=== PATIENT | female | born 1950 | race Caucasian/White ===

== ENCOUNTER → 2017-01-04 | Outpatient (CLI) | payer MEDICAID ==
[2016-05-12 10:47] VITALS: BP 133/61
[~2017-01-04] MED LIST: NS 100 ML IV 100 ML IV ONE
[2017-01-04 10:05] LABS: CREATININE 0.64 mg/dL (0.55-1.02)
--- NOTE | 2017-01-04 16:24 | CT ---
HISTORY: Generalized abdominal pain and abnormal weight loss Study: CT abdomen and pelvis with IV and oral contrast Comparison: None Technique: Multiple axial images of the abdomen and pelvis were obtained from the lung bases to the pubic symph ysis with the administration of IV contrast. Sagittal and coronal reformations were provided. Findings: The visualized portions of the lung bases are unremarkable. There is low-attenuation thickening of t he wall of the antrum of the stomach. The liver, spleen, pancreas, kidneys, and adrenal glands are unremarkable in their CT appearance. The gallbladder and appendix and uterus are surgically absent. There is no biliary dilatation.. No significant mesenteric lymphadenopathy or stranding can be obse rved. No free fluid or free air is seen within the abdomen. No bowel wall thickening or bowel dila tation is present. The colon is unremarkable. Specifically, there is no diverticulosis noted withi n the sigmoid colon. The urinary bladder is grossly unremarkable. The bony structures are grossly i ntact. IMPRESSION: 1. Probable distal gastritis Reported By:
== END ==
LOC: RAD 09:18
PROVIDERS: ATTEND Nurse Practitioner Family
DX: R10.84 Generalized abdominal pain (principal); R11.2 Nausea with vomiting, unspecified; R63.4 Abnormal weight loss; R42 Dizziness and giddiness
CPT/HCPCS: 36415; 74177; 82565; 84520; A4222

== ENCOUNTER → 2017-01-19 | Outpatient (CLI) | payer MEDICAID ==
[2016-05-12 10:47] VITALS: BP 133/61
--- NOTE | 2017-01-20 09:42 | MG ---
HISTORY: SCREENING Comparison: December 12, 2014 and December 25, 2015 FINDINGS: Bilateral CC and MLO projections of the right and left breast were obtained. Scattered fibroglandul ar tissue is seen to be present without significant interval change. No suspicious architectural di stortion, mass or clustered microcalcifications can be observed to suggest malignancy. No skin thic kening or nipple retraction is appreciated. No pathological lymphadenopathy can be identified. Forrest ign-appearing calcifications are noted within the right and left breast. IMPRESSION: NO RADIOGRAPHIC EVIDENCE OF MALIGNANCY. ACR CATEGORY 2 - benign findings. FOLLOW-UP EXAM 1 YEAR. Diagnostic CAD was utilized and reviewed. * 0 (ZERO) - ASSESSMENT INCOMPLETE; ADDITIONAL IMAGING IS NEEDED. * 1/1 (ONE) - NEGATIVE. * 2/II (TWO) - BENIGN FINDINGS. * 3/III (THREE) - PROBABLY BENIGN FINDING; SHORT INTERVAL FOLLOW-UP SUGGESTED. * 4/IV (FOUR) - SUSPICIOUS ABNORMALITY; BIOPSY SHOULD BE CONSIDERED. * 5/V (FIVE) - HIGHLY SUSPICIOUS OF MALIGNANCY; BIOPSY SHOULD BE PERFORMED. A NEGATIVE X-RAY REPORT SHOULD NOT DELAY BIOPSY IF A DOMINANT OR CLINICALLY SUSPICIOUS MASS IS PRESENT; 4 TO 8 PERCENT OF CANCERS ARE NOT IDENTIFIED BY X-RAY. A NEG ATIVE REPORT MAY REINFORCE THE CLINICAL IMPRESSION. ADENOSIS AND DENSE BREASTS MAY OBSCURE AN UNDER LYING NEOPLASM. Reported By:
== END ==
LOC: RAD 13:49
PROVIDERS: ATTEND Specialist
DX: Z12.31 Encounter for screening mammogram for malignant neoplasm of breast (principal)
CPT/HCPCS: 77067

== ENCOUNTER 2017-01-28 04:02 | Inpatient (IN) | payer MEDICAID ==
[2017-01-28] MEDS ORDERED: TORADOL 30 MG VIAL IVP ONE (04:30)
[2017-01-28] MEDS ORDERED: PROTONIX INJ 40 MG VIAL IVP ONE (04:31)
--- NOTE | 2017-01-28 04:34 | DR.GENAD ---
HPI - PCP Primary Care Physician: RENETTA MENDENHALL - HPI Comment HPI Comment: TONIGHT TEMP NOT IMPROVING WITH TYLENOL AND MOTRIN. COUGH PRODUCTIVE THICK SPUTUM THAT IS DARK YELLOW. SHE HAS CHEST PAIN AND NASAL CONGESTION. NOT ON MEDICATION FOR CURRENT ILLNESS. - Complaint/Symptoms Chief Complaint Doctors Comments: PERSISTENT FEVER AND COUGH TIMES ONE DAY. Chief Complaint:: FEVER, COUGH ONSET YESTERDAY Self Treatment fo Chief Complaint: TYLENOL 1 GRAM 0200, MOTRIN 2100 HRS, - Nurses notes reviewed Nurses Notes Review: Yes - Source History Provided: Patient - Mode of Arrival Mode of Arrival: EMS - Timing Onset of Chief Complaint: 01/27/17 Came on: Suddenly - Duration Duration: Constant Duration: Days - Severity Severity: Moderate PMH - PMH Past Medical History: Yes Past Medical History: Arthritis, Asthma, COPD, Dyslipidemia, GERD, Hypertension Past Surgical History: Yes Surgical History: Cholecystectomy, Hysterectomy, Ortho Surgery - Family History History of Family Medical Conditions: No - Social History Does patient currently use any type of tobacco product: Yes Have you used tobacco products in the last 12 months: Yes Type of Tobacco Use: Cigarettes Does any household member use tobacco: No Alcohol Use: None Do you use any recreational Drugs:: No Lives With: Family Lives Where: Home - infectious screening In the last 2 months have you had wt loss of >10#?: NO Have you had fever, night sweats or hemotysis?: No Have you traveled outside the country in the last 6 months?: No Isolation: Standard ROS - Review of Systems Constitutional: Fever, Weakness, Fatigue, Loss of Appetite. negative: Chills Eyes: No Symptoms Reported ENTM: Nose Congestion. negative: Ear Pain, Nose Discharge, Throat Pain Respiratoy: Productive Cough, Short of Breath, Wheezing. negative: Non- Productive Cough, Hemoptysis Cardiovascular: Chest Pain. negative: Edema, Palpitations Gastrointestinal/Abdominal: No Symptoms Reported. negative: Abdominal Pain, Diarrhea, Nausea, Vomiting Genitourinary: No Symptoms Reported. negative: Dysuria, Hematuria Neurological: Headache, Weakness Musculoskeletal: Back Pain, Muscle Pain, Back Integumentary: Dryness Hematologic/Lymphatic: Easy Bruising Endocrine: No Symptoms Reported All Other Systems: Reviewed and Negative PE - Vital Signs Vitals: Temperature 100.1 F Pulse Rate 112 Respiratory Rate 18 Blood Pressure 143/59 O2 Sat by Pulse Oximetry 93 - General Limitations: No Limitations General Appearance: Alert - Head Head Exam: Normal Inspection - Eyes Eye exam: Normal Appearance - ENT ENT Exam: Normal External Ear Exam External Ear Exam: Normal External Inspection TM/Canal Exam: Bilateral Normal Nose Exam: Normal Nose Exam Mouth Exam: Normal Inspection Throat Exam: Normal Inspection - Neck Neck Exam: Trachea Midline - Chest Chest Inspection: Symmetric Chest Wall Rise - Respiratory Respiratory Exam: Respiratory Distress Respiratory Exam: Bilateral Wheezing, Bilateral Rhonchi, Lower Wheezing, Lower Rhonchi - Cardiovascular Cardiovascular Exam: Regular Rate, Normal Rhythm, Normal Heart Sounds - Abdominal Exam Abdominal Exam: Normal Bowel Sounds, Soft. negative: Tenderness - Extremities Extremities Exam: Normal Inspection - Back Back Exam: Paraspinal Tenderness - Neurologic Neurological Exam: Alert, Oriented X3 - Psychiatric Psychiatric Exam: Normal Affect, Normal Mood - Skin Skin Exam: Erythema MDM - Differential Diagnosis Differential Diagnosis: PNEUMONIA, BRONCHITIS, COPD, CHF, Course - Treatment Treatment: SEE ORDERS. - Consultation Consultation Comments: DISCUSS PATIENT WITH DR. MOSQUEDA. HE WILL ADMIT PATIENT. - Education/Counseling Education/Counseling: Patient, Education Educated On: Treatment, Diagnosis ROR - Labs Reviewed Laboratory Results Reviewed?: Yes Result Diagrams: 01/28/17 04:50 01/28/17 04:50 Laboratory: 01/28/17 04:48 Sputum - Expectorated Sputum - Final WBC 14.4 X10^3/uL (3.6-10.0) H 01/28/17 04:50 RBC 4.64 X10^6/uL (3.5-5.4) 01/28/17 04:50 Hgb 12.3 g/dL (12.0-16.0) 01/28/17 04:50 Hct 38.3 % (36.0-47.0) 01/28/17 04:50 MCV 82.5 fL (80.0-100.0) 01/28/17 04:50 MCH 26.4 pg (27.0-34.0) L 01/28/17 04:50 MCHC 32.1 g/dL (33.0-35.0) L 01/28/17 04:50 RDW 15.0 % (11.6-16.5) 01/28/17 04:50 Plt Count 170 X10^3/uL (150.0-450.0) 01/28/17 04:50 MPV 11.4 fL (7.4-11.0) H 01/28/17 04:50 Neut % 85.2 % (42.0-75.0) H 01/28/17 04:50 Lymph % 6.3 % (21.0-51.0) L 01/28/17 04:50 [place] % 7.0 % (0.0-13.0) 01/28/17 04:50 Eos % 0.9 % (0.9-2.9) 01/28/17 04:50 Baso % 0.6 % (0.2-1.0) 01/28/17 04:50 Neut # 12.3 x10^3/uL (2.2-4.8) H 01/28/17 04:50 Lymph # 0.9 X10^3/uL (1.3-2.9) L 01/28/17 04:50 [place] # 1.0 x10^3/uL (0.3-0.8) H 01/28/17 04:50 Eos # 0.1 x10^3/uL (0.0-0.2) 01/28/17 04:50 Baso # 0.1 X10^3/uL (0.0-0.1) 01/28/17 04:50 Absolute Nucleated RBC 0.0 /100WBC 01/28/17 04:50 Sodium 146 mmol/L (136-145) H 01/28/17 04:50 Corrected Sodium TNP 01/28/17 04:50 Potassium 3.4 mmol/L (3.5-5.1) L 01/28/17 04:50 Chloride 109 mmol/L (98-107) H 01/28/17 04:50 Carbon Dioxide 24.2 mmol/L (21-32) 01/28/17 04:50 BUN 9 mg/dL (7-18) 01/28/17 04:50 Creatinine 0.72 mg/dL (0.55-1.02) 01/28/17 04:50 Est GFR (MDRD) Af Amer > 60 (>60) 01/28/17 04:50 Est GFR (MDRD) Non-Af > 60 (>60) 01/28/17 04:50 Glucose 105 mg/dL (65-99) H 01/28/17 04:50 Lactic Acid 1.2 mmol/L (0.4-2.0) 01/28/17 04:50 Calcium 9.2 mg/dL (8.5-10.1) 01/28/17 04:50 Corrected Calcium TNP 01/28/17 04:50 Total Bilirubin 0.40 mg/dL (0.2-1.0) 01/28/17 04:50 AST 15 Units/L (15-37) 01/28/17 04:50 ALT 18 Units/L (12-78) 01/28/17 04:50 Alkaline Phosphatase 47 Units/L (46-116) 01/28/17 04:50 Total Protein 6.9 g/dL (6.4-8.2) 01/28/17 04:50 Albumin 3.4 g/dL (3.4-5.0) 01/28/17 04:50 Globulin 3.5 g/dL (2.5-4.5) 01/28/17 04:50 Albumin/Globulin Ratio 1.0 Ratio (1.1-2.1) L 01/28/17 04:50 Specimen Type Clean catch urine 01/28/17 05:09 Urine Color Yellow (YELLOW) 01/28/17 05:09 Urine Appearance Slightly hazy (CLEAR) 01/28/17 05:09 Urine pH 5.0 (5.0 - 8.0) 01/28/17 05:09 Ur Specific [place] 1.015 (1.000-1.030) 01/28/17 05:09 Urine Protein 1+ (NEGATIVE) 01/28/17 05:09 Urine Glucose (UA) Negative (NEGATIVE) 01/28/17 05:09 Urine Ketones Negative (NEGATIVE) 01/28/17 05:09 Urine Occult Blood 1+ (NEGATIVE) 01/28/17 05:09 Urine Nitrite Negative (NEGATIVE) 01/28/17 05:09 Urine Bilirubin Negative (NEGATIVE) 01/28/17 05:09 Urine Urobilinogen Normal (NORMAL) 01/28/17 05:09 Ur Leukocyte Esterase 1+ (NEGATIVE) 01/28/17 05:09 Urine RBC 0-3 /HPF (NEGATIVE) 01/28/17 05:09 Urine WBC 0-3 /HPF (NEGATIVE) 01/28/17 05:09 Ur Squamous Epith Cells Many /HPF (NEGATIVE) 01/28/17 05:09 Urine Bacteria Trace /HPF (NEGATIVE) 01/28/17 05:09 Ur Culture Indicated? No/not indicated 01/28/17 05:09 Influenza A (H1N1) PCR Not detected (NOT DETECT) 01/28/17 04:51 Influenza Type A (PCR) Negative (NEGATIVE) 01/28/17 04:51 Influenza Type B (PCR) Negative (NEGATIVE) 01/28/17 04:51 - XRAY XRAY Interpreted by: Radiologist XRAY Findings: REPORT NOTED AND DICUSS WITH PATIENT. - EKG Rhythm: NSR (EKG NOTED) - Diagnosis Discharge Problem: COPD exacerbation Acute bronchitis Qualifiers: Bronchitis organism: other organism Qualified Code(s): J20.8 - Acute bronchitis due to other specified organisms Fever Qualifiers: Fever type: unspecified Qualified Code(s): R50.9 - Fever, unspecified - Discharge Plan Disposition: ADMITTED INPATIENT Condition: Stable - Follow ups/Referrals Follow ups/Referrals: NFD,None [Primary Care Provider] - 3 days - Instructions
[2017-01-28] MEDS ORDERED: TORADOL 30 MG VIAL ONE (04:44)
[2017-01-28] MEDS ORDERED: PROTONIX INJ 40 MG VIAL ONE (04:44)
[2017-01-28 05:05] LABS: BASOPHILS # (AUTO) 0.1 X10^3/uL (0.0-0.1); BASOPHILS % (AUTO) 0.6 % (0.2-1.0); EOSINOPHILS # (AUTO) 0.1 x10^3/uL (0.0-0.2); EOSINOPHILS % (AUTO) 0.9 % (0.9-2.9); HEMATOCRIT 38.3 % (36.0-47.0); HEMOGLOBIN 12.3 g/dL (12.0-16.0); LYMPHOCYTES # (AUTO) 0.9 X10^3/uL (1.3-2.9); LYMPHOCYTES % (AUTO) 6.3 % (21.0-51.0); MEAN CORPUSCULAR HEMOGLOBIN 26.4 pg (27.0-34.0); MEAN CORPUSCULAR HGB CONC 32.1 g/dL (33.0-35.0); MEAN CORPUSCULAR VOLUME 82.5 fL (80.0-100.0); MEAN PLATELET VOLUME 11.4 fL (7.4-11.0); NEUTROPHILS # (AUTO) 12.3 x10^3/uL (2.2-4.8); NEUTROPHILS % (AUTO) 85.2 % (42.0-75.0); PLATELET COUNT 170 X10^3/uL (150.0-450.0); RED BLOOD COUNT 4.64 X10^6/uL (3.5-5.4); WHITE BLOOD COUNT 14.4 X10^3/uL (3.6-10.0)
[2017-01-28 05:13] LABS: ALANINE AMINOTRANSFERASE 18 Units/L (12-78); ALBUMIN 3.4 g/dL (3.4-5.0); ALKALINE PHOSPHATASE 47 Units/L (46-116); ASPARTATE AMINO TRANSFERASE 15 Units/L (15-37); BLOOD UREA NITROGEN 9 mg/dL (7-18); CALCIUM 9.2 mg/dL (8.5-10.1); CARBON DIOXIDE 24.2 mmol/L (21-32); CHLORIDE 109 mmol/L (98-107); CREATININE 0.72 mg/dL (0.55-1.02); GLUCOSE 105 mg/dL (65-99); SODIUM 146 mmol/L (136-145); TOTAL PROTEIN 6.9 g/dL (6.4-8.2); eGFR BLACK RACES > 60 (>60); eGFR NON BLACK RACES > 60 (>60)
[2017-01-28 05:14] LABS: BILIRUBIN,URINE NEGATIVE (NEGATIVE); BLOOD/HEMOGLOBIN,URINE 1+ (NEGATIVE); GLUCOSE, URINE NEGATIVE (NEGATIVE); KETONES,URINE NEGATIVE (NEGATIVE); LEUKOCYTE ESTERASE ,URINE 1+ (NEGATIVE); NITRITES,URINE NEGATIVE (NEGATIVE); PROTEIN,URINE 1+ (NEGATIVE); UROBILINOGEN,URINE NORMAL (NORMAL)
[2017-01-28 05:30] LABS: LACTIC ACID 1.2 mmol/L (0.4-2.0)
--- NOTE | 2017-01-28 05:36 | RAD ---
Chest AP portable Indication: Fever. Sore throat and body aches. Findings: March 19, 2016 radiograph reviewed. Findings: There is cardiomegaly pulmonary opacities. No pneumothorax seen. No focal consolidation se en. Impression: Cardiomegaly and peribronchial thickening. COPD change possible with bronchitis. Borderl ine CHF appearance could appear similar. PA and lateral chest followup recommended. Reported By:
[2017-01-28 05:45] LABS: APPEARANCE,URINE SLIGHTLY HAZY (CLEAR); BACTERIA,URINE TRACE /HPF (NEGATIVE); COLOR,URINE YELLOW (YELLOW); RBC,URINE 0-3 /HPF (NEGATIVE); SQUAMOUS EPITHELIAL CELL,UR MANY /HPF (NEGATIVE)
[2017-01-28] MEDS ORDERED: LEVAQUIN PREMIX IV 750 MG 750 MG/150 ML BAG IV ONE ×2 (05:59→06:17)
[2017-01-28 08:23] LABS: CKMB % 3.5 % (<4); CREATINE KINASE 29 Units/L (26-192); CREATINE KINASE MB < 1.0 ng/mL (0-4.0); TROPONIN I < 0.02 ng/mL (0-1.5)
[2017-01-28] MEDS: DUONEB 0.5 MG/3 MG NEB SCH ×4 (09:40→20:44)
[2017-01-28] MEDS ORDERED: [UNRECOGNIZED DRUG - OTHER] PO PRN (10:22)
[2017-01-28 10:27] VITALS: BMI 21.9
[2017-01-28] MEDS ORDERED: NS 100 ML IV 100 ML IV ONE (10:27)
[2017-01-28] MEDS ORDERED: [UNRECOGNIZED DRUG - OTHER] PO SCH (10:30)
[2017-01-28] MEDS ORDERED: [UNRECOGNIZED DRUG - OTHER] PO SCH (10:30)
[2017-01-28] MEDS: TORADOL 30 MG VIAL IVP PRN (10:34)
[2017-01-28] MEDS: PEPCID 20 MG IV PREMIX* 20 MG/50 ML BAG IV SCH ×2 (10:34→20:59)
[2017-01-28] MEDS ORDERED: BENTYL CAP 10 MG PO PRN (10:43)
[2017-01-28] MEDS ORDERED: TORADOL 30 MG VIAL IVP SCH (11:00)
[2017-01-28] MEDS: ANTIVERT TAB 25 MG PO SCH ×2 (11:20→21:00)
[2017-01-28] MEDS: LOPRESSOR TAB 50 MG PO SCH (11:20)
[2017-01-28] MEDS: SINGULAIR TAB 10 MG PO SCH (11:20)
[2017-01-28] MEDS: HYDROCHLOROTHIAZIDE 25 MG TAB PO SCH (11:20)
[2017-01-28] MEDS: ASPIRIN 81 MG CHEWTAB PO SCH (11:20)
[2017-01-28] MEDS: CLARITIN PO SCH (11:20)
[2017-01-28] MEDS: ESTRADIOL TD SCH (11:21)
[2017-01-28] MEDS: VOLTAREN 1 % GEL MULTI DOSE TUBE TOP SCH ×4 (11:51→21:03)
[2017-01-28 12:02] LABS: CKMB % 5.3 % (<4); CREATINE KINASE 19 Units/L (26-192); CREATINE KINASE MB < 1.0 ng/mL (0-4.0); TROPONIN I < 0.02 ng/mL (0-1.5)
[2017-01-28] MEDS ORDERED: K-RIDER 10 MEQ/NS 100 ML 10 MEQ/100 ML BAG IV PRN (12:48)
[2017-01-28] MEDS ORDERED: POTASSIUM CHLORIDE LIQ 20 MEQ UDC PO PRN (12:48)
[2017-01-28] MEDS ORDERED: K-LYTE EFFERVESCENT PO PRN (12:48)
[2017-01-28] MEDS: K-DUR TAB 20 MEQ PO PRN (13:34)
[2017-01-28] MEDS: MAGNESIUM SULFATE 1 GM/100 mL PREMIX 1 GM/100 ML BAG IV SCH ×2 (13:35→14:58)
[2017-01-28] MEDS: NEURONTIN CAP 400 MG PO SCH ×2 (13:35→21:04)
[2017-01-28] MEDS: REQUIP PO SCH ×2 (13:35→21:05)
[2017-01-28 20:22] LABS: CREATINE KINASE 20 Units/L (26-192); CREATINE KINASE MB < 1.0 ng/mL (0-4.0); TROPONIN I < 0.02 ng/mL (0-1.5)
[2017-01-28] MEDS: TRICOR TAB 160 MG PO SCH (21:01)
[2017-01-28] MEDS: ZOCOR TAB 40 MG PO SCH (21:02)
[2017-01-29] MEDS: DUONEB 0.5 MG/3 MG NEB SCH ×6 (00:30→20:10)
[2017-01-29] MEDS: TORADOL 30 MG VIAL IVP PRN (04:25)
[2017-01-29] MEDS: SOMA TAB 350 MG PO PRN ×2 (04:29→17:59)
[2017-01-29] MEDS: [UNRECOGNIZED DRUG - OTHER] PO SCH ×2 (06:49→21:25)
[2017-01-29 06:52] LABS: BASOPHILS # (AUTO) 0.1 X10^3/uL (0.0-0.1); BASOPHILS % (AUTO) 0.5 % (0.2-1.0); EOSINOPHILS # (AUTO) 0.1 x10^3/uL (0.0-0.2); EOSINOPHILS % (AUTO) 0.8 % (0.9-2.9); HEMOGLOBIN 9.9 g/dL (12.0-16.0); LYMPHOCYTES # (AUTO) 1.4 X10^3/uL (1.3-2.9); LYMPHOCYTES % (AUTO) 11.7 % (21.0-51.0); MEAN CORPUSCULAR HEMOGLOBIN 26.7 pg (27.0-34.0); MEAN CORPUSCULAR HGB CONC 32.1 g/dL (33.0-35.0); MEAN CORPUSCULAR VOLUME 83.1 fL (80.0-100.0); MEAN PLATELET VOLUME 11.6 fL (7.4-11.0); MONOCYTES # (AUTO) 0.9 x10^3/uL (0.3-0.8); NEUTROPHILS # (AUTO) 9.8 x10^3/uL (2.2-4.8); PLATELET COUNT 150 X10^3/uL (150.0-450.0); RED BLOOD COUNT 3.73 X10^6/uL (3.5-5.4); RED CELL DISTRIBUTION WIDTH 14.7 % (11.6-16.5); WHITE BLOOD COUNT 12.3 X10^3/uL (3.6-10.0)
[2017-01-29 06:53] LABS: ALANINE AMINOTRANSFERASE 16 Units/L (12-78); ALBUMIN 2.8 g/dL (3.4-5.0); ALKALINE PHOSPHATASE 57 Units/L (46-116); ASPARTATE AMINO TRANSFERASE 17 Units/L (15-37); BLOOD UREA NITROGEN 12 mg/dL (7-18); CARBON DIOXIDE 24.1 mmol/L (21-32); CHLORIDE 113 mmol/L (98-107); CREATININE 0.74 mg/dL (0.55-1.02); GLUCOSE 86 mg/dL (65-99); MAGNESIUM 1.8 mg/dL (1.7-2.9); SODIUM 149 mmol/L (136-145); TOTAL PROTEIN 6.2 g/dL (6.4-8.2); eGFR BLACK RACES > 60 (>60); eGFR NON BLACK RACES > 60 (>60)
[2017-01-29] MEDS: REQUIP PO SCH ×4 (07:12→21:11)
[2017-01-29] MEDS: NEURONTIN CAP 400 MG PO SCH ×4 (07:12→21:29)
[2017-01-29] MEDS: PEPCID 20 MG IV PREMIX* 20 MG/50 ML BAG IV SCH ×2 (09:26→21:11)
[2017-01-29] MEDS: PROTONIX INJ 40 MG VIAL IVP SCH (09:26)
[2017-01-29] MEDS: HYDROCHLOROTHIAZIDE 25 MG TAB PO SCH (09:26)
[2017-01-29] MEDS: K-DUR TAB 20 MEQ PO PRN (09:27)
[2017-01-29] MEDS: LOPRESSOR TAB 50 MG PO SCH (09:27)
[2017-01-29] MEDS: SINGULAIR TAB 10 MG PO SCH (09:27)
[2017-01-29] MEDS: CLARITIN PO SCH (09:27)
[2017-01-29] MEDS: ANTIVERT TAB 25 MG PO SCH ×2 (09:27→21:13)
[2017-01-29] MEDS: ASPIRIN 81 MG CHEWTAB PO SCH (09:27)
[2017-01-29] MEDS: VOLTAREN 1 % GEL MULTI DOSE TUBE TOP SCH ×4 (09:28→21:18)
[2017-01-29] MEDS: ESTRADIOL TD SCH (09:30)
[2017-01-29] MEDS: TYLENOL #3 TAB (W/CODEINE) PO PRN (15:42)
[2017-01-29] MEDS: XANAX PO PRN (15:43)
--- NOTE | 2017-01-29 16:27 | DR.H&P ---
H&P - History & Physical for Day of: H&P Date: 01/28/17 - Chief Complaint Chief Complaint: COUGH, CONGESTION, FEVER, SHORTNESS OF BREATH - Allergies Allergies/Adverse Reactions: Allergies Allergy/AdvReac Type Severity Reaction Status Date / Time Penicillins Allergy Verified 01/28/17 09:43 Vancomycin Allergy Verified 01/28/17 09:43 - History of Present Illness History of Present Illness: THIS IS A 66 YEAR OLD FEMALE, WHO IS A PATIENT OF [facility]. SHE PRESENTS TO THE EMERGENCY ROOM WITH COMPLAINTS OF SHORTNESS OF BREATH, COUGH, CONGESTION, AND FEVER. PATIENT REPROTS SYMPTOMS HAVE BEEN ON- GOING SINCE ONE DAY PRIOR TO ARRIVAL AND HAVE WORSENED IN SEVERITY. SHE REPORTS COUGH IS PRODUCTIVE AND HAS CHEST PAIN AND NASAL CONGESTION. ON AUSCULATION, LUNGS ARE NOTED WITH WHEEZING THROUGHOUT. SHE REPORTS TAKING MOTRIN AND TYLENOL AT HOME WITH NO IMPROVEMENT. SHE REPORTS FEVER OF 104.0F AT HOME. LABS AND CHEST XRAY OBTAINED IN ER. CBC WNL EXCEPT: WBC 14.4. CMP WNL EXCEPT: SODIUM 146, POTASSIUM 3.4, CHL 109. MAGNESIUM 1.3. CARDIAC ENZYMES WNL. INFLUENZA NEGATIVE. CHEST XRAY CARDIOMEGALY AND PERIBRONCHIAL THICKENING ; COPD CHANGE. WE WILL ADMIT PATIENT FOR FURTHER TREATMENT AND EVALUATION. 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, Emphysema , Previous Blood Transfusion - Past Surgical History Surgical History: Cholecystectomy, Hysterectomy, Ortho Surgery Additional Surgical History: Tubal Ligation, Hernia Repair - Family History Family Medical History: Cancer - Social History Does patient currently use any type of tobacco product: Yes Have you used tobacco products in the last 12 months: Yes Type of Tobacco Use: Cigarettes How many years tobacco product used: 40 Does any household member use tobacco: No Alcohol Use: None - Medications Home Medications: Acetaminophen W/ Codeine [Acetaminophen/Codeine 300-60 mg] 1 tab PO Q6H PRN 02/09 [History Confirmed 01/28/17] Albuterol Neb 2.5MG/ 3Ml [Proventil Neb Tx 0.083% 2.5MG/ 3Ml] 1 nebule INH QID 01/28/17 [History Confirmed 01/28/17] Alendronate Sodium [Fosamax] 70 mg PO Q7D 01/28/17 [History Confirmed 01/28/17] Alprazolam [Xanax] 0.5 mg PO BID PRN 01/28/17 [History Confirmed 01/28/17] Aspirin [Aspirin 81 mg Chewtab] 81 mg PO DAILY 01/28/17 [History Confirmed 01/28] Carisoprodol [Soma Tab 350 mg] 350 mg PO BID PRN 01/28/17 [History Confirmed 02/09] Clemastine Fumarate [Tavist 2.68 mg] 2.68 mg PO DAILY 01/28/17 [History Confirmed 01/28/17] Cyanocobalamin 1 ml IM WEEKLY 01/28/17 [History Confirmed 01/28/17] Diclofenac Sodium (Topical) [Voltaren 1 % Gel Multi Dose Tube] 1 applic TOP QID 01/28/17 [History Confirmed 01/28/17] Dicyclomine HCl 20 mg PO TID PRN 01/28/17 [History Confirmed 01/28/17] Ergocalciferol [Vitamin D (1.25MG)] 50,000 unit PO WEEKLY 01/28/17 [History Confirmed 01/28/17] Estradiol [Climara] 0.1 mg TD WEEKLY 01/28/17 [History Confirmed 01/28/17] Fenofibrate [Fenofibrate 160 mg] 160 mg PO HS 01/28/17 [History Confirmed ] Gabapentin 800 mg PO TID 01/28/17 [History Confirmed 01/28/17] Ipratropium Ewen Hfa [ATROVENT HFA INHALER *] 2 puff IN QID 01/28/17 [ History Confirmed 01/28/17] Ipratropium-Albuterol [Ipratropium Ewen/Albut neb] 1 nebule IN QID PRN [History Confirmed 01/28/17] Loratadine 10 mg 24-Hr Tab [LORATADINE 10 MG *] 10 mg PO DAILY 01/28/17 [ History Confirmed 01/28/17] Magnesium [Magnesium] 400 mg PO DAILY 01/28/17 [History Confirmed 01/28/17] Meclizine HCl [Meclizine 25] 12.5 mg PO BID 01/28/17 [History Confirmed 01/28/17 ] Metoprolol & Hydrochlorothiazi [Lopressor Hct 50-25 mg] 25 mg PO DAILY 01/28/17 [History Confirmed 01/28/17] Misc Home Med [Patient's Home Medication (Non-PO)] 100 mg PO TID 01/28/17 [ History Confirmed 01/28/17] Montelukast Sodium [Singulair Tab 10 mg] 10 mg PO DAILY 01/28/17 [History Confirmed 01/28/17] Potassium Chloride [Potassium Chloride ER] 20 meq PO BID 01/28/17 [History Confirmed 01/28/17] Ranitidine HCl [Ranitidine [address]] 300 mg PO BID 01/28/17 [History Confirmed 01/28/17] Ropinirole HCl [REQUIP 0.25 MG *] 0.25 mg PO TID 01/28/17 [History Confirmed 02/09] Simvastatin 80 mg PO HS 01/28/17 [History Confirmed 01/28/17] Solifenacin Succinate [Vesicare] 5 mg PO HS 01/28/17 [History Confirmed 01/28/17 ] Venlafaxine HCl [Venlafaxine HCl ER] 1 tab PO DAILY 01/28/17 [History Confirmed 01/28/17] - Review of Systems Constitutional: Fever, Chills, Weakness, Malaise Eyes: No Symptoms Reported. denies: Pain, Vision Change, Conjunctivae Inflammation, Eyelid Inflammation, Redness ENT: Nose Discharge. denies: Ear Pain, Ear Discharge, Nose Pain, Nose Congestion, Mouth Pain, Mouth Swelling, Throat Pain, Throat Swelling Respiratory: Cough, Shortness of Breath, SOB with Excertion, Sputum, Wheezing. denies: Hemoptysis, Pleuritic Pain Cardiovascular: Chest Pain. denies: Palpitations, Orthopnea, Paroxysmal Noc. Dyspnea, Edema, Light Headedness Gastrointestinal: No Symptoms Reported. denies: Nausea, Vomiting, Abdominal Pain, Diarrhea, Constipation, Melena, Hematochezia Genitourinary: No Symptoms Reported. denies: Dysuria, Frequency, Incontinence, Hematuria, Retention Musculoskeletal: No Symptoms Reported. denies: Shoulder Pain, Arm Pain, Back Pain, Hand Pain, Leg Pain, Foot Pain, Neck Pain Skin: No Symptoms Reported. denies: Rash, Lesions, Jaundice, Bruising, Wound, Ecchymosis Neurological: No Symptoms Reported. denies: Weakness, Numbness, Incoordination , Change in Speech, Confusion, Seizures - Physical Exam Vital Signs: Temperature 98.8 F Pulse Rate [Left Brachial] 82 Pulse Rate [Right Brachial] 71 Pulse Rate 70 Respiratory Rate 18 Blood Pressure [Left Arm] 113/43 Blood Pressure [Right Arm] 110/51 O2 Sat by Pulse Oximetry 96 Oriented: Normal, Time, Person, Place Eyes: Normal. negative: Blurred Vision, Diplopia, Discharge, Pain, Redness, Photophobia Ear: Normal. negative: Swelling, Ecchymosis, Hemotypanum, Abrasion, Laceration Nose: Discharge. negative: Injected, Blood Throat: Red, Dry. negative: Tonsillar Hypertrophy, Exudate Respiratory: Wheezes Throughout Cardiovascular: Normal. negative: Murmur : Normal. negative: Dysuria, Hematuria, Frequency, Discharge, Bleeding, Auscultation: Bowel Sounds: Normal. negative: Bruit Palpation: Normal. negative: Spleen Enlarged, Liver Enlarged, Mass Pulsatile Tenderness: Normal. negative: Rebound, Guarding, Rigidity Skin: Normal. negative: Diaphoresis, Wound, Bruising, Ecchymosis Musculoskeletal: Normal Psychiatric: Normal Mood Description: Calm, Appropriate Affect: Normal Speech Pattern: Clear, Appropriate - Assessment/Plan (1) COPD exacerbation Status: Acute Plan: ADMIT PATIENT, START DUONEBS, SUPPLEMENTAL OXGYEN, MONITOR LABS AND CHEST XRAY. (2) Acute bronchitis Qualifiers: Bronchitis organism: other organism Qualified Code(s): J20.8 - Acute bronchitis due to other specified organisms Status: Acute Plan: ABOVE. (3) Fever Qualifiers: Fever type: unspecified Encounter type: E Qualified Code(s): R50.9 - Fever, unspecified Status: Acute (4) COPD (chronic obstructive pulmonary disease) Qualifiers: COPD type: emphysema Chronic bronchitis type: C Emphysema type: E Status: Chronic (5) Asthma Qualifiers: Asthma severity: moderate persistent Asthma complication type: A Status: Chronic
--- NOTE | 2017-01-29 16:38 | PCM.PROG ---
Progress Note - Progress Note for Day of Date: 01/29/17 - Subjective Subjective: PATIENT CONTINUES WITH SHORTNESS OF BREATH AND ACCESSORY MUSCLE USE. SHE CONTINUES ON SUPPLEMENTAL OXYGEN WITH DUONEBS. SHE IS NOTED WITH A TEMPERATURE OF 100.1F THROUGH THE NIGHT. ON AUSCULTATION, LUNGS CONTINUE WITH WHEEZING THROUGHOUT. CBC WNL EXCEPT: WBC 12.3, H/H 9.9/31.0. CMP WNL EXCEPT: SODIUM 149, POTASSIUM 3.4, CHL 113, TOT PROTEIN 6.2, ALBUMIN 2.8. WE WILL START IV LEVAQUIN, CONTINUE DUONEBS, SUPPLEMENTAL OXYGEN, AND CONTINUE TO MONITOR. WE WILL FOLLOW UP WITH LABS AND CHEST XRAY IN AM. - Past Medical Family Social History Past Med/Fam/Surg Hx: No changes since H&P Allergies: Allergies Penicillins Allergy (Verified 01/28/17 09:43) Vancomycin Allergy (Verified 01/28/17 09:43) - Review of Systems ROS: No change since H&P - Vital Signs and I&O's Vital Signs: Temperature 98.8 F Pulse Rate [Left Brachial] 82 Pulse Rate [Right Brachial] 71 Pulse Rate 70 Respiratory Rate 18 Blood Pressure [Left Arm] 113/43 Blood Pressure [Right Arm] 110/51 O2 Sat by Pulse Oximetry 96 Intake and Output: Intake & Output 01/27/17 01/28/17 01/29/17 01/30/17 11:59 11:59 11:59 11:59 Intake Total 1457 375 Output Total 500 Balance 957 375 - Physical Exam Oriented: Normal, Time, Person, Place Eyes: Normal. negative: Blurred Vision, Diplopia, Discharge, Pain, Redness, Photophobia Ear: Normal. negative: Swelling, Ecchymosis, Hemotypanum, Abrasion, Laceration Nose: Discharge. negative: Injected, Blood Throat: Red, Dry. negative: Tonsillar Hypertrophy, Exudate Respiratory: Generalized, Wheezes Cardiovascular: Normal. negative: Murmur : Normal. negative: Dysuria, Hematuria, Frequency, Discharge, Bleeding, Auscultation: Bowel Sounds: Normal. negative: Bruit Palpation: Normal. negative: Spleen Enlarged, Liver Enlarged, Mass Pulsatile Tenderness: Normal. negative: Rebound, Guarding, Rigidity Skin: Normal. negative: Diaphoresis, Wound, Bruising, Ecchymosis Musculoskeletal: Normal Psychiatric: Normal Mood Description: Calm, Appropriate Affect: Normal Speech Pattern: Clear, Appropriate - Laboratory and Diagnostics Result Diagrams: 01/29/17 03:49 01/29/17 03:49 Labs: Laboratory WBC 12.3 X10^3/uL (3.6-10.0) H 01/29/17 03:49 RBC 3.73 X10^6/uL (3.5-5.4) 01/29/17 03:49 Hgb 9.9 g/dL (12.0-16.0) L 01/29/17 03:49 Hct 31.0 % (36.0-47.0) L 01/29/17 03:49 MCV 83.1 fL (80.0-100.0) 01/29/17 03:49 MCH 26.7 pg (27.0-34.0) L 01/29/17 03:49 MCHC 32.1 g/dL (33.0-35.0) L 01/29/17 03:49 RDW 14.7 % (11.6-16.5) 01/29/17 03:49 Plt Count 150 X10^3/uL (150.0-450.0) 01/29/17 03:49 MPV 11.6 fL (7.4-11.0) H 01/29/17 03:49 Neut % 80.0 % (42.0-75.0) H 01/29/17 03:49 Lymph % 11.7 % (21.0-51.0) L 01/29/17 03:49 [place] % 7.0 % (0.0-13.0) 01/29/17 03:49 Eos % 0.8 % (0.9-2.9) L 01/29/17 03:49 Baso % 0.5 % (0.2-1.0) 01/29/17 03:49 Neut # 9.8 x10^3/uL (2.2-4.8) H 01/29/17 03:49 Lymph # 1.4 X10^3/uL (1.3-2.9) 01/29/17 03:49 [place] # 0.9 x10^3/uL (0.3-0.8) H 01/29/17 03:49 Eos # 0.1 x10^3/uL (0.0-0.2) 01/29/17 03:49 Baso # 0.1 X10^3/uL (0.0-0.1) 01/29/17 03:49 Absolute Nucleated RBC 0.0 /100WBC 01/29/17 03:49 Sodium 149 mmol/L (136-145) H 01/29/17 03:49 Corrected Sodium TNP 01/29/17 03:49 Potassium 3.4 mmol/L (3.5-5.1) L 01/29/17 03:49 Chloride 113 mmol/L (98-107) H 01/29/17 03:49 Carbon Dioxide 24.1 mmol/L (21-32) 01/29/17 03:49 BUN 12 mg/dL (7-18) 01/29/17 03:49 Creatinine 0.74 mg/dL (0.55-1.02) 01/29/17 03:49 Est GFR (MDRD) Af Amer > 60 (>60) 01/29/17 03:49 Est GFR (MDRD) Non-Af > 60 (>60) 01/29/17 03:49 Glucose 86 mg/dL (65-99) 01/29/17 03:49 Lactic Acid 1.2 mmol/L (0.4-2.0) 01/28/17 04:50 Calcium 9.0 mg/dL (8.5-10.1) 01/29/17 03:49 Corrected Calcium 10.0 mg/dL (8.5-10.1) 01/29/17 03:49 Magnesium 1.8 mg/dL (1.7-2.9) 01/29/17 03:49 Total Bilirubin 0.20 mg/dL (0.2-1.0) 01/29/17 03:49 AST 17 Units/L (15-37) 01/29/17 03:49 ALT 16 Units/L (12-78) 01/29/17 03:49 Alkaline Phosphatase 57 Units/L (46-116) 01/29/17 03:49 Creatine Kinase 20 Units/L (26-192) L 01/28/17 19:48 CK-MB (CK-2) < 1.0 ng/mL (0-4.0) 01/28/17 19:48 CK/CKMB % Calc 5.0 % (<4) 01/28/17 19:48 Troponin I < 0.02 ng/mL (0-1.5) 01/28/17 19:48 Total Protein 6.2 g/dL (6.4-8.2) L 01/29/17 03:49 Albumin 2.8 g/dL (3.4-5.0) L 01/29/17 03:49 Globulin 3.4 g/dL (2.5-4.5) 01/29/17 03:49 Albumin/Globulin Ratio 0.8 Ratio (1.1-2.1) L 01/29/17 03:49 Specimen Type Clean catch urine 01/28/17 05:09 Urine Color Yellow (YELLOW) 01/28/17 05:09 Urine Appearance Slightly hazy (CLEAR) 01/28/17 05:09 Urine pH 5.0 (5.0 - 8.0) 01/28/17 05:09 Ur Specific [place] 1.015 (1.000-1.030) 01/28/17 05:09 Urine Protein 1+ (NEGATIVE) 01/28/17 05:09 Urine Glucose (UA) Negative (NEGATIVE) 01/28/17 05:09 Urine Ketones Negative (NEGATIVE) 01/28/17 05:09 Urine Occult Blood 1+ (NEGATIVE) 01/28/17 05:09 Urine Nitrite Negative (NEGATIVE) 01/28/17 05:09 Urine Bilirubin Negative (NEGATIVE) 01/28/17 05:09 Urine Urobilinogen Normal (NORMAL) 01/28/17 05:09 Ur Leukocyte Esterase 1+ (NEGATIVE) 01/28/17 05:09 Urine RBC 0-3 /HPF (NEGATIVE) 01/28/17 05:09 Urine WBC 0-3 /HPF (NEGATIVE) 01/28/17 05:09 Ur Squamous Epith Cells Many /HPF (NEGATIVE) 01/28/17 05:09 Urine Bacteria Trace /HPF (NEGATIVE) 01/28/17 05:09 Ur Culture Indicated? No/not indicated 01/28/17 05:09 Influenza A (H1N1) PCR Not detected (NOT DETECT) 01/28/17 04:51 Influenza Type A (PCR) Negative (NEGATIVE) 01/28/17 04:51 Influenza Type B (PCR) Negative (NEGATIVE) 01/28/17 04:51 - Plan (1) COPD exacerbation Status: Acute Plan: START LEVAQUIN, CONTINUE DUONEBS, SUPPLEMENTAL OXGYEN, MONITOR LABS AND CHEST XRAY. (2) Acute bronchitis Status: Acute Qualifiers: Bronchitis organism: other organism Qualified Code(s): J20.8 - Acute bronchitis due to other specified organisms Plan: ABOVE. (3) Fever Status: Acute Qualifiers: Fever type: unspecified Encounter type: E Qualified Code(s): R50.9 - Fever, unspecified Plan: ABOVE. (4) COPD (chronic obstructive pulmonary disease) Status: Chronic Qualifiers: COPD type: emphysema Chronic bronchitis type: C Emphysema type: E (5) Asthma Status: Chronic Qualifiers: Asthma severity: moderate persistent Asthma complication type: A
[2017-01-29] MEDS: LEVAQUIN PREMIX IV 750 MG 750 MG/150 ML BAG IV SCH (17:59)
[2017-01-29] MEDS: ZOCOR TAB 40 MG PO SCH (21:12)
[2017-01-29] MEDS: TRICOR TAB 160 MG PO SCH (21:13)
[2017-01-29] MEDS: SOLU-Medrol 40 MG VIAL IVP SCH (21:16)
[2017-01-30] MEDS: DUONEB 0.5 MG/3 MG NEB SCH ×6 (01:18→20:13)
[2017-01-30] MEDS: TORADOL 30 MG VIAL IVP PRN (02:28)
[2017-01-30] MEDS: SOMA TAB 350 MG PO PRN ×2 (02:35→16:45)
[2017-01-30] MEDS: NEURONTIN CAP 400 MG PO SCH ×3 (05:48→21:17)
[2017-01-30] MEDS: REQUIP PO SCH ×3 (05:49→21:15)
[2017-01-30 06:10] LABS: BASOPHILS % (AUTO) 0.3 % (0.2-1.0); EOSINOPHILS % (AUTO) 0.1 % (0.9-2.9); HEMATOCRIT 29.2 % (36.0-47.0); HEMOGLOBIN 9.4 g/dL (12.0-16.0); LYMPHOCYTES # (AUTO) 0.4 X10^3/uL (1.3-2.9); MEAN CORPUSCULAR HGB CONC 32.3 g/dL (33.0-35.0); MEAN CORPUSCULAR VOLUME 83.5 fL (80.0-100.0); MONOCYTES # (AUTO) 0.1 x10^3/uL (0.3-0.8); NEUTROPHILS % (AUTO) 92.6 % (42.0-75.0); PLATELET COUNT 148 X10^3/uL (150.0-450.0); RED CELL DISTRIBUTION WIDTH 15.1 % (11.6-16.5); WHITE BLOOD COUNT 7.6 X10^3/uL (3.6-10.0)
[2017-01-30 07:00] LABS: ALANINE AMINOTRANSFERASE 18 Units/L (12-78); ALBUMIN 2.7 g/dL (3.4-5.0); ALKALINE PHOSPHATASE 50 Units/L (46-116); ASPARTATE AMINO TRANSFERASE 13 Units/L (15-37); BLOOD UREA NITROGEN 14 mg/dL (7-18); CALCIUM 9.3 mg/dL (8.5-10.1); CARBON DIOXIDE 21.7 mmol/L (21-32); CHLORIDE 107 mmol/L (98-107); COR CA(FOR HYPOALB) 10.3 mg/dL (8.5-10.1); COR NA(FOR HYPERGLY) 148 mmol/L (136-145); CREATININE 0.96 mg/dL (0.55-1.02); GLUCOSE 292 mg/dL (65-99); SODIUM 143 mmol/L (136-145); TOTAL PROTEIN 6.4 g/dL (6.4-8.2); eGFR BLACK RACES > 60 (>60); eGFR NON BLACK RACES > 60 (>60)
[2017-01-30] MEDS ORDERED: ESTRADIOL TD SCH (08:00)
[2017-01-30 08:35] LABS: PLATELET MORPHOLOGY COMMENT NORMAL (NORMAL)
--- NOTE | 2017-01-30 09:55 | RAD ---
HISTORY: Cough, congestion, shortness of breath Study: Two-view Chest Comparison: January 28, 2017 Findings: The trachea is midline . There is no widening or shift of mediastinum. The cardiac silhouette appear s within normal limits. The costophrenic angles are sharp and both diaphragms are flattened consiste nt with COPD.. The lungs are adequately aerated. Moderate mid thoracic kyphosis. There is no evidenc e of active inflammatory disease. IMPRESSION: 1. Heart normal size lungs clear. No evidence of bacterial pneumonia. Flattened diaphragms consiste nt with COPD. Reported By:
[2017-01-30] MEDS: LEVAQUIN PREMIX IV 750 MG 750 MG/150 ML BAG IV SCH (11:35)
[2017-01-30] MEDS: PEPCID 20 MG IV PREMIX* 20 MG/50 ML BAG IV SCH ×2 (11:35→21:17)
[2017-01-30] MEDS: SINGULAIR TAB 10 MG PO SCH (11:36)
[2017-01-30] MEDS: HYDROCHLOROTHIAZIDE 25 MG TAB PO SCH (11:36)
[2017-01-30] MEDS: SOLU-Medrol 40 MG VIAL IVP SCH ×2 (11:36→21:22)
[2017-01-30] MEDS: ANTIVERT TAB 25 MG PO SCH ×2 (11:36→21:15)
[2017-01-30] MEDS: PROTONIX INJ 40 MG VIAL IVP SCH (11:36)
[2017-01-30] MEDS: CLARITIN PO SCH (11:36)
[2017-01-30] MEDS: XANAX PO PRN (11:36)
[2017-01-30] MEDS: K-DUR TAB 20 MEQ PO PRN (11:36)
[2017-01-30] MEDS: LOPRESSOR TAB 50 MG PO SCH (11:37)
[2017-01-30] MEDS: VOLTAREN 1 % GEL MULTI DOSE TUBE TOP SCH ×5 (11:37→21:22)
[2017-01-30] MEDS: ASPIRIN 81 MG CHEWTAB PO SCH (11:37)
[2017-01-30] MEDS: TYLENOL #3 TAB (W/CODEINE) PO PRN ×2 (11:37→19:55)
[2017-01-30] MEDS ORDERED: NS 100 ML IV 100 ML IV ONE (11:50)
[2017-01-30] MEDS ORDERED: ROBITUSSIN DM PO PRN (16:36)
--- NOTE | 2017-01-30 18:08 | PCM.PROG ---
Progress Note - Progress Note for Day of Date: 01/30/17 - Subjective Subjective: PATIENT CONTINUES WITH SHORTNESS OF BREATH AND ACCESSORY MUSCLE USE. SHE CONTINUES ON SUPPLEMENTAL OXYGEN WITH DUONEBS. PATIENT AFEBRILE. ON AUSCULTATION, LUNGS CONTINUE WITH WHEEZING THROUGHOUT. CBC WNL EXCEPT: H/H 9.4/ 29.2, PLT COUNT 148. CMP WNL EXCEPT: POTASSIUM 3.4, GLUCOSE 292, ALBUMIN 2.7. WE WILL CONTINUE IV LEVAQUIN, DUONEBS, SUPPLEMENTAL OXYGEN, AND CONTINUE TO MONITOR. WE WILL FOLLOW UP WITH LABS AND CHEST XRAY IN AM. - Past Medical Family Social History Past Med/Fam/Surg Hx: No changes since H&P Allergies: Allergies Penicillins Allergy (Verified 01/28/17 09:43) Vancomycin Allergy (Verified 01/28/17 09:43) - Review of Systems ROS: No change since H&P - Vital Signs and I&O's Vital Signs: Temperature 97.9 F Pulse Rate [Left Brachial] 77 Pulse Rate [Right Brachial] 80 Pulse Rate 78 Respiratory Rate 20 Blood Pressure [Left Arm] 141/65 Blood Pressure [Right Arm] 136/64 O2 Sat by Pulse Oximetry 96 Intake and Output: Intake & Output 01/28/17 01/29/17 01/30/17 01/31/17 11:59 11:59 11:59 11:59 Intake Total 1521 580 Balance 1521 580 - Physical Exam Oriented: Normal, Time, Person, Place Eyes: Normal. negative: Blurred Vision, Diplopia, Discharge, Pain, Redness, Photophobia Ear: Normal. negative: Swelling, Ecchymosis, Hemotypanum, Abrasion, Laceration Nose: Discharge. negative: Injected, Blood Throat: Red, Dry. negative: Tonsillar Hypertrophy, Exudate Respiratory: Generalized, Wheezes Cardiovascular: Normal. negative: Murmur : Normal. negative: Dysuria, Hematuria, Frequency, Discharge, Bleeding, Auscultation: Bowel Sounds: Normal. negative: Bruit Palpation: Normal Tenderness: Normal. negative: Rebound, Guarding, Rigidity Skin: Normal. negative: Diaphoresis, Wound, Bruising, Ecchymosis Musculoskeletal: Normal Psychiatric: Normal Mood Description: Calm, Appropriate Affect: Normal Speech Pattern: Clear - Laboratory and Diagnostics Result Diagrams: 01/30/17 05:05 01/30/17 05:05 Labs: Laboratory WBC 7.6 X10^3/uL (3.6-10.0) 01/30/17 05:05 RBC 3.50 X10^6/uL (3.5-5.4) 01/30/17 05:05 Hgb 9.4 g/dL (12.0-16.0) L 01/30/17 05:05 Hct 29.2 % (36.0-47.0) L 01/30/17 05:05 MCV 83.5 fL (80.0-100.0) 01/30/17 05:05 MCH 27.0 pg (27.0-34.0) 01/30/17 05:05 MCHC 32.3 g/dL (33.0-35.0) L 01/30/17 05:05 RDW 15.1 % (11.6-16.5) 01/30/17 05:05 Plt Count 148 X10^3/uL (150.0-450.0) L 01/30/17 05:05 Plt Count Comment Adequate (ADEQUATE) 01/30/17 05:05 MPV 11.0 fL (7.4-11.0) 01/30/17 05:05 Neut % 92.6 % (42.0-75.0) H 01/30/17 05:05 Lymph % 5.0 % (21.0-51.0) L 01/30/17 05:05 Kings % 2.0 % (0.0-13.0) 01/30/17 05:05 Eos % 0.1 % (0.9-2.9) L 01/30/17 05:05 Baso % 0.3 % (0.2-1.0) 01/30/17 05:05 Neut # 7.0 x10^3/uL (2.2-4.8) H 01/30/17 05:05 Lymph # 0.4 X10^3/uL (1.3-2.9) L 01/30/17 05:05 Kings # 0.1 x10^3/uL (0.3-0.8) L 01/30/17 05:05 Eos # 0.0 x10^3/uL (0.0-0.2) 01/30/17 05:05 Baso # 0.0 X10^3/uL (0.0-0.1) 01/30/17 05:05 Absolute Nucleated RBC 0.1 /100WBC 01/30/17 05:05 Total Counted 100 01/30/17 05:05 Neutrophils % (Manual) 96 % (39-76) H 01/30/17 05:05 Lymphocytes % (Manual) 3 % (13-43) L 01/30/17 05:05 Monocytes % (Manual) 1 % (4-9) L 01/30/17 05:05 Plt Morphology Comment Normal (NORMAL) 01/30/17 05:05 RBC Morphology Normal (NORMAL) 01/30/17 05:05 Sodium 143 mmol/L (136-145) 01/30/17 05:05 Corrected Sodium 148 mmol/L (136-145) H 01/30/17 05:05 Potassium 3.4 mmol/L (3.5-5.1) L 01/30/17 05:05 Chloride 107 mmol/L (98-107) 01/30/17 05:05 Carbon Dioxide 21.7 mmol/L (21-32) 01/30/17 05:05 BUN 14 mg/dL (7-18) 01/30/17 05:05 Creatinine 0.96 mg/dL (0.55-1.02) 01/30/17 05:05 Est GFR (MDRD) Af Amer > 60 (>60) 01/30/17 05:05 Est GFR (MDRD) Non-Af > 60 (>60) 01/30/17 05:05 Glucose 292 mg/dL (65-99) H 01/30/17 05:05 Lactic Acid 1.2 mmol/L (0.4-2.0) 01/28/17 04:50 Calcium 9.3 mg/dL (8.5-10.1) 01/30/17 05:05 Corrected Calcium 10.3 mg/dL (8.5-10.1) H 01/30/17 05:05 Magnesium 1.8 mg/dL (1.7-2.9) 01/29/17 03:49 Total Bilirubin 0.10 mg/dL (0.2-1.0) L 01/30/17 05:05 AST 13 Units/L (15-37) L 01/30/17 05:05 ALT 18 Units/L (12-78) 01/30/17 05:05 Alkaline Phosphatase 50 Units/L (46-116) 01/30/17 05:05 Creatine Kinase 20 Units/L (26-192) L 01/28/17 19:48 CK-MB (CK-2) < 1.0 ng/mL (0-4.0) 01/28/17 19:48 CK/CKMB % Calc 5.0 % (<4) 01/28/17 19:48 Troponin I < 0.02 ng/mL (0-1.5) 01/28/17 19:48 Total Protein 6.4 g/dL (6.4-8.2) 01/30/17 05:05 Albumin 2.7 g/dL (3.4-5.0) L 01/30/17 05:05 Globulin 3.7 g/dL (2.5-4.5) 01/30/17 05:05 Albumin/Globulin Ratio 0.7 Ratio (1.1-2.1) L 01/30/17 05:05 Specimen Type Clean catch urine 01/28/17 05:09 Urine Color Yellow (YELLOW) 01/28/17 05:09 Urine Appearance Slightly hazy (CLEAR) 01/28/17 05:09 Urine pH 5.0 (5.0 - 8.0) 01/28/17 05:09 Ur Specific [place] 1.015 (1.000-1.030) 01/28/17 05:09 Urine Protein 1+ (NEGATIVE) 01/28/17 05:09 Urine Glucose (UA) Negative (NEGATIVE) 01/28/17 05:09 Urine Ketones Negative (NEGATIVE) 01/28/17 05:09 Urine Occult Blood 1+ (NEGATIVE) 01/28/17 05:09 Urine Nitrite Negative (NEGATIVE) 01/28/17 05:09 Urine Bilirubin Negative (NEGATIVE) 01/28/17 05:09 Urine Urobilinogen Normal (NORMAL) 01/28/17 05:09 Ur Leukocyte Esterase 1+ (NEGATIVE) 01/28/17 05:09 Urine RBC 0-3 /HPF (NEGATIVE) 01/28/17 05:09 Urine WBC 0-3 /HPF (NEGATIVE) 01/28/17 05:09 Ur Squamous Epith Cells Many /HPF (NEGATIVE) 01/28/17 05:09 Urine Bacteria Trace /HPF (NEGATIVE) 01/28/17 05:09 Ur Culture Indicated? No/not indicated 01/28/17 05:09 Influenza A (H1N1) PCR Not detected (NOT DETECT) 01/28/17 04:51 Influenza Type A (PCR) Negative (NEGATIVE) 01/28/17 04:51 Influenza Type B (PCR) Negative (NEGATIVE) 01/28/17 04:51 - Plan (1) COPD exacerbation Status: Acute Plan: CONTINUE LEVAQUIN, DUONEBS, SUPPLEMENTAL OXGYEN, MONITOR LABS AND CHEST XRAY. (2) Acute bronchitis Status: Acute Qualifiers: Bronchitis organism: other organism Qualified Code(s): J20.8 - Acute bronchitis due to other specified organisms Plan: ABOVE. (3) Fever Status: Acute Qualifiers: Fever type: unspecified Encounter type: E Qualified Code(s): R50.9 - Fever, unspecified Plan: ABOVE. (4) COPD (chronic obstructive pulmonary disease) Status: Chronic Qualifiers: COPD type: emphysema Chronic bronchitis type: C Emphysema type: E (5) Asthma Status: Chronic Qualifiers: Asthma severity: moderate persistent Asthma complication type: A
[2017-01-30] MEDS ORDERED: [UNRECOGNIZED DRUG - OTHER] PO SCH (18:15)
[2017-01-30] MEDS: TUSSIONEX PENNKINETIC SUSP PO PRN (19:55)
[2017-01-30] MEDS: TRICOR TAB 160 MG PO SCH (21:16)
[2017-01-30] MEDS: ZOCOR TAB 40 MG PO SCH (21:17)
[2017-01-30] MEDS: [UNRECOGNIZED DRUG - OTHER] PO SCH (22:16)
[2017-01-31] MEDS: DUONEB 0.5 MG/3 MG NEB SCH ×3 (00:27→08:47)
[2017-01-31] MEDS: REQUIP PO SCH (05:46)
[2017-01-31] MEDS: NEURONTIN CAP 400 MG PO SCH (05:46)
[2017-01-31] MEDS: TYLENOL #3 TAB (W/CODEINE) PO PRN (05:50)
[2017-01-31 06:03] LABS: ALANINE AMINOTRANSFERASE 21 Units/L (12-78); ALBUMIN 2.7 g/dL (3.4-5.0); ALKALINE PHOSPHATASE 41 Units/L (46-116); ASPARTATE AMINO TRANSFERASE 13 Units/L (15-37); BLOOD UREA NITROGEN 12 mg/dL (7-18); CALCIUM 9.6 mg/dL (8.5-10.1); CARBON DIOXIDE 27.2 mmol/L (21-32); CHLORIDE 107 mmol/L (98-107); COR CA(FOR HYPOALB) 10.6 mg/dL (8.5-10.1); COR NA(FOR HYPERGLY) 145 mmol/L (136-145); CREATININE 0.88 mg/dL (0.55-1.02); GLUCOSE 188 mg/dL (65-99); SODIUM 143 mmol/L (136-145); TOTAL PROTEIN 6.3 g/dL (6.4-8.2); eGFR BLACK RACES > 60 (>60); eGFR NON BLACK RACES > 60 (>60)
[2017-01-31 06:14] LABS: BASOPHILS % (AUTO) 0.3 % (0.2-1.0); HEMATOCRIT 29.2 % (36.0-47.0); HEMOGLOBIN 9.4 g/dL (12.0-16.0); LYMPHOCYTES # (AUTO) 0.6 X10^3/uL (1.3-2.9); MEAN CORPUSCULAR HEMOGLOBIN 26.5 pg (27.0-34.0); MEAN CORPUSCULAR HGB CONC 32.1 g/dL (33.0-35.0); MEAN CORPUSCULAR VOLUME 82.8 fL (80.0-100.0); MEAN PLATELET VOLUME 10.4 fL (7.4-11.0); MONOCYTES # (AUTO) 0.5 x10^3/uL (0.3-0.8); NEUTROPHILS # (AUTO) 10.9 x10^3/uL (2.2-4.8); NEUTROPHILS % (AUTO) 90.7 % (42.0-75.0); PLATELET COUNT 214 X10^3/uL (150.0-450.0); RED BLOOD COUNT 3.53 X10^6/uL (3.5-5.4)
[2017-01-31 06:42] LABS: PLATELET MORPHOLOGY COMMENT NORMAL (NORMAL)
[2017-01-31] MEDS: SOLU-Medrol 40 MG VIAL IVP SCH (08:23)
[2017-01-31] MEDS: HYDROCHLOROTHIAZIDE 25 MG TAB PO SCH (08:23)
[2017-01-31] MEDS: PROTONIX INJ 40 MG VIAL IVP SCH (08:23)
[2017-01-31] MEDS: PEPCID 20 MG IV PREMIX* 20 MG/50 ML BAG IV SCH (08:23)
[2017-01-31] MEDS: LOPRESSOR TAB 50 MG PO SCH (08:24)
[2017-01-31] MEDS: ASPIRIN 81 MG CHEWTAB PO SCH (08:24)
[2017-01-31] MEDS: ANTIVERT TAB 25 MG PO SCH (08:24)
[2017-01-31] MEDS: SINGULAIR TAB 10 MG PO SCH (08:24)
[2017-01-31] MEDS: CLARITIN PO SCH (08:25)
[2017-01-31] MEDS: TUSSIONEX PENNKINETIC SUSP PO PRN (08:27)
[2017-01-31] MEDS ORDERED: MAG-OX TAB PO SCH (09:00)
[2017-01-31] MEDS ORDERED: MORPHINE SULFATE INJ 2 MG ONE (09:16)
[2017-01-31] MEDS: SOMA TAB 350 MG PO PRN (09:46)
[2017-01-31] MEDS: TORADOL 30 MG VIAL IVP PRN (09:46)
[2017-01-31] MEDS: LEVAQUIN PREMIX IV 750 MG 750 MG/150 ML BAG IV SCH (10:28)
[2017-01-31] MEDS: VOLTAREN 1 % GEL MULTI DOSE TUBE TOP SCH (10:30)
[2017-01-31 11:53] VITALS: BP 130/62
--- NOTE | 2017-01-31 13:32 | DR.CARTERD ---
- Discharge Summary for: Discharge Summary for Date of:: 01/31/17 - Admission Date Date of Admission: 01/28/17 - Admission Diagnoses Admission Diagnosis: (1) COPD exacerbation (2) Acute bronchitis (3) Fever (4) COPD (chronic obstructive pulmonary disease) (5) Asthma - Discharge Date Discharge Date: 01/31/17 - Discharge Diagnoses Discharge Diagnosis: (1) COPD exacerbation (2) Acute bronchitis (3) Fever (4) COPD (chronic obstructive pulmonary disease) (5) Asthma - Hospital Course Hospital Course: THIS IS A 66 YEAR OLD FEMALE, WHO IS A PATIENT OF [facility]. SHE PRESENTED TO THE EMERGENCY ROOM WITH COMPLAINTS OF SHORTNESS OF BREATH, COUGH, CONGESTION , AND FEVER. PATIENT REPORTED SYMPTOMS HAVE BEEN ON-GOING SINCE ONE DAY PRIOR TO ARRIVAL AND HAVE WORSENED IN SEVERITY. SHE REPORTED COUGH WAS PRODUCTIVE AND HAD CHEST PAIN AND NASAL CONGESTION. ON AUSCULATION, LUNGS WERE NOTED WITH WHEEZING THROUGHOUT. SHE REPORTED TAKING MOTRIN AND TYLENOL AT HOME WITH NO IMPROVEMENT. SHE REPORTED FEVER OF 104.0F AT HOME. LABS AND CHEST XRAY OBTAINED IN ER. CBC WNL EXCEPT: WBC 14.4. CMP WNL EXCEPT: SODIUM 146, POTASSIUM 3.4, CHL 109. MAGNESIUM 1.3. CARDIAC ENZYMES WNL. INFLUENZA NEGATIVE. CHEST XRAY CARDIOMEGALY AND PERIBRONCHIAL THICKENING; COPD CHANGE. WE ADMITTED PATIENT FOR FURTHER TREATMENT AND EVALUATION. OVER THE NEXT SEVERAL DAYS, PATIENT RECEIVED AGGRESSIVE NEB TREATMENTS, SUPPLEMENTAL OXYGEN, SOLU- MEDROL IV, AND IV ANTIBIOTICS. PATIENT IMPROVED AND WAS NOTED WITH NO SHORTNESS OF BREATH. PATIENT REPORTED THAT SHE IS OXYGEN DEPENDENT AT HOME AND WE ENCOURAGED USE OF HOME OXYGEN. WE PLANNED FOR DISCHARGE. INSTRUCTIONS FOR MEDICATIONS AND FOLLOW UP GIVEN TO PATIENT AND FAMILY. BOTH VOICED UNDERSTANDING. PATIENT DISCHARGED HOME WITH PRESCRIPTIONS FOR DUONEBS, LEVAQUIN , TESSALON PEARLS, TUSSIONEX, AND A MEDROL DOSE PACK. PATIENT WAS DISCHARGED HOME IN STABLE CONDITION WITH FAMILY. - Discharge Medications Discharge Medications: Acetaminophen W/ Codeine [Acetaminophen/Codeine 300-60 mg] 1 tab PO Q6H PRN 02/09 [History] Albuterol Neb 2.5MG/ 3Ml [ALBUTEROL NEB 2.5MG/ 3ML *] 1 nebule INH QID 01/28/17 [History] Alendronate Sodium [Fosamax] 70 mg PO Q7D 01/28/17 [History] Alprazolam [XANAX 0.5 MG *] 0.5 mg PO BID PRN 01/28/17 [History] Aspirin [ASPIRIN 81 MG CHEWTAB *] 81 mg PO DAILY 01/28/17 [History] Carisoprodol [SOMA 350 MG *] 350 mg PO BID PRN 01/28/17 [History] Clemastine Fumarate [Tavist 2.68 mg] 2.68 mg PO DAILY 01/28/17 [History] Cyanocobalamin 1 ml IM WEEKLY 01/28/17 [History] Diclofenac Sodium (Topical) [Voltaren 1 % Gel Multi Dose Tube] 1 applic TOP QID 01/28/17 [History] Dicyclomine HCl 20 mg PO TID PRN 01/28/17 [History] Ergocalciferol [Vitamin D (1.25MG)] 50,000 unit PO WEEKLY 01/28/17 [History] Estradiol [Climara] 0.1 mg TD WEEKLY 01/28/17 [History] Fenofibrate [Fenofibrate 160 mg] 160 mg PO HS 01/28/17 [History] Gabapentin 800 mg PO TID 01/28/17 [History] Ipratropium [place] Hfa [ATROVENT HFA INHALER *] 2 puff IN QID 01/28/17 [History ] Ipratropium-Albuterol [Ipratropium [place]/Albut neb] 1 nebule IN QID PRN [History] Loratadine 10 mg 24-Hr Tab [LORATADINE 10 MG *] 10 mg PO DAILY 01/28/17 [History ] Magnesium 400 mg PO DAILY 01/28/17 [History] Meclizine HCl [Meclizine 25] 12.5 mg PO BID 01/28/17 [History] Metoprolol & Hydrochlorothiazi [Lopressor Hct 50-25 mg] 25 mg PO DAILY 01/28/17 [History] Misc Home Med [Patient's Home Medication (Non-PO)] 100 mg PO TID 01/28/17 [ History] Montelukast Sodium [SINGULAIR TAB 10 MG *] 10 mg PO DAILY 01/28/17 [History] Potassium Chloride [Potassium Chloride ER] 20 meq PO BID 01/28/17 [History] Ranitidine HCl [Ranitidine [address]] 300 mg PO BID 01/28/17 [History] Ropinirole HCl [REQUIP 0.25 MG *] 0.25 mg PO TID 01/28/17 [History] Simvastatin 80 mg PO HS 01/28/17 [History] Solifenacin Succinate [Vesicare] 5 mg PO HS 01/28/17 [History] Venlafaxine HCl [Venlafaxine HCl ER] 1 tab PO DAILY 01/28/17 [History] Benzonatate [Tessalon Perles] 200 mg PO TID PRN #30 cap 01/31/17 [Rx] Guaifenesin Ext Rel [Mucinex Expectorant] 600 mg PO Q12H #20 tab.sr.12h [Rx] Hydrocodone Polist/Chlorphenir [Tussionex Pennkinetic Susp] 5 ml PO Q12H PRN # 60 ml 01/31/17 [Rx] Levofloxacin [Levaquin Tab 500 mg] 500 mg PO Q24H #10 tab 01/31/17 [Rx] Methylprednisolone Dosepak 4Mg [MEDROL DOSEPAK (4 mg tab x 21)] 1 ramón PO ONCE # 1 ramón 01/31/17 [Rx] - Discharge Disposition Discharge Disposition: PATIENT IS TO FOLLOW-UP WITH [facility] IN 1 WEEK.
== END 2017-01-31 11:55 | disposition home or self-care (01) | DRG 202 ==
LOC: ER 04:02 → MED/SURG 07:21 → UNDOADMOB 08:18 → OBSVTOIN 01-29 08:00
PROVIDERS: ADMIT Internal Medicine; ATTEND Internal Medicine
DX: J20.8 Acute bronchitis due to other specified organisms (principal); J44.1 Chronic obstructive pulmonary disease with (acute) exacerbation; E78.2 Mixed hyperlipidemia; R50.81 Fever presenting with conditions classified elsewhere; R94.31 Abnormal electrocardiogram [ECG] [EKG]; R07.89 Other chest pain; M13.89 Other specified arthritis, multiple sites; K21.9 Gastro-esophageal reflux disease without esophagitis; I10 Essential (primary) hypertension; I51.7 Cardiomegaly; R06.02 Shortness of breath; J45.40 Moderate persistent asthma, uncomplicated; Z99.81 Dependence on supplemental oxygen; B96.1 Klebsiella pneumoniae [K. pneumoniae] as the cause of diseases classified elsewhere
CPT/HCPCS: 36415; 71010; 71020; 80053; 81001; 82550; 82553; 83605; 83735; 84132; 84484; 85025; 87040; 87070; 87077; 87186; 87205; 87502; 87503; 93005; 94760; 96365; 96374; 96375; 99284; A4222; C9113; S0028; G0378; J1885; J1956; J2270; J2920; J7620

== ENCOUNTER → 2017-02-17 | Outpatient (CLI) | payer MEDICAID ==
[2017-01-31 11:53] VITALS: BP 130/62
--- NOTE | 2017-02-17 12:47 | RAD ---
HISTORY: Shortness of breath Study: Chest two views January 30, 2017 Comparison: Findings: The trachea is midline. The cardiac silhouette is unremarkable. The lungs are clear without focal infiltrate or effusion. The bony thorax is unremarkable. IMPRESSION: 1. No acute cardiopulmonary disease. Reported By:
== END ==
LOC: RAD 12:18
PROVIDERS: ATTEND Nurse Practitioner Family
DX: R06.02 Shortness of breath (principal); R50.9 Fever, unspecified; J20.8 Acute bronchitis due to other specified organisms
CPT/HCPCS: 71020

== ENCOUNTER 2017-04-07 07:52 | Day surgery (SDC) | payer MEDICAID ==
[2017-04-07] MEDS ORDERED: D5 LR 1000 ML 1,000 ML IV ONE (08:02)
[2017-04-07] MEDS ORDERED: DIPRIVAN VIAL 20 ML ONE (09:06)
[2017-04-07 09:33] VITALS: BP 122/74
== END 2017-04-07 09:33 | disposition home or self-care (01) ==
LOC: SURG1 07:52
PROVIDERS: ATTEND Internal Medicine Gastroenterology
PROC: 0DB88ZX Excision of Small Intestine, Via Natural or Artificial Opening Endoscopic, Diagnostic (ICD-10-PCS; principal; 2017-04-07 09:45)
PROC: 0DB68ZX Excision of Stomach, Via Natural or Artificial Opening Endoscopic, Diagnostic (ICD-10-PCS; principal; 2017-04-07 09:45)
PROC: 0DJ08ZZ Inspection of Upper Intestinal Tract, Via Natural or Artificial Opening Endoscopic (ICD-10-PCS; principal; 2017-04-07 09:45)
DX: R10.13 Epigastric pain (principal); R11.2 Nausea with vomiting, unspecified; K25.9 Gastric ulcer, unspecified as acute or chronic, without hemorrhage or perforation; K29.60 Other gastritis without bleeding; K20.8 Other esophagitis; K44.9 Diaphragmatic hernia without obstruction or gangrene; K21.9 Gastro-esophageal reflux disease without esophagitis
CPT/HCPCS: A4217; J3490; J7120

== ENCOUNTER → 2017-05-19 | Outpatient (CLI) | payer MEDICAID ==
--- NOTE | 2017-05-19 14:23 | RAD ---
HISTORY: Left shoulder pain, rotator cuff tendinitis Study: Left shoulder internal rotation, external rotation, Y-view Comparison: May 06, 2016 Findings: The appearance of the clavicle and AC joint are unremarkable. The glenohumeral articulation is sarah l in its appearance. No acute cortical disruption or dislocation can be identified. The visualized portions of the scapula are unremarkable. In addition, the visualized portions of the left hemithora x appear normal. IMPRESSION: 1. Negative exam. Reported By:
== END ==
LOC: RAD 12:27
PROVIDERS: ATTEND Specialist
DX: M75.82 Other shoulder lesions, left shoulder (principal)
CPT/HCPCS: 73030

== ENCOUNTER → 2017-06-08 | Outpatient (CLI) | payer OTHER, MEDICAID ==
--- NOTE | 2017-06-09 10:38 | MRI ---
MRI left shoulder without contrast Indication: Left shoulder pain Technique: Multiplanar, multi sequence imaging of the left foot without IV contrast administration. Findings: Given patient positioning evaluation of the anterior-most fibers of the supraspinatus tendo n is limited, there is potentially tear of the anterior supraspinatus tendon. The mid and posterior f ibers of the supraspinatus tendon demonstrate approximate 25% articular surface tearing seen on coron al image 13. There is extension of low-grade articular surface tearing in throat anterior-most fibers of the infraspinatus tendon. No high-grade tear or atrophy identified within the supraspinatus or in fraspinatus tendons. The subscapularis tendon is normal. There is intermediate signal within a mildly thickened intra-articular long head biceps tendon consistent with tendinopathy. There is tear of the superior labrum with extension of tear to involve the anterior superior and anterior labrum seen bes t on axial image 12. The posterior labrum is intact aside for mild degenerative fraying. Glenohumeral articular cartilage is normal without subchondral marrow signal abnormality. There is small amount o f glenohumeral joint fluid. The acromioclavicular joint demonstrates mild degenerative change without mass effect or indentation of the rotator cuff. Inferior glenohumeral ligament is intact. No axillar y adenopathy. Impression: 1. Limited visualization of the anterior-most fibers of the supraspinatus tendon given patient arm po sitioning and the possibility of an anterior supraspinatus tendon tear cannot be excluded by this exa mination. 2. Low-grade approximate 25% thickness articular surface tearing of the mid and posterior fibers of t he supraspinatus tendon and anterior fibers of the infraspinatus tendon. No high-grade tear or muscle belly atrophy. 3. Tendinopathy of the intra-articular long head biceps tendon without tear or retraction. 4. Superior labral tear with propagation of tear into the anterior superior and anterior labrum. Reported By:
== END | disposition home or self-care (01) ==
LOC: RAD 14:49
PROVIDERS: ATTEND Specialist
DX: M75.82 Other shoulder lesions, left shoulder (principal); S43.492A Other sprain of left shoulder joint, initial encounter; X58.XXXA Exposure to other specified factors, initial encounter
CPT/HCPCS: 73221

== ENCOUNTER 2017-08-04 11:43 | Day surgery (SDC) | payer OTHER, MEDICAID ==
[2017-08-04] MEDS ORDERED: D5 LR 1000 ML 1,000 ML IV ONE (11:45)
[2017-08-04 12:26] LABS: BASOPHILS # (AUTO) 0.1 X10^3/uL (0.0-0.1); BASOPHILS % (AUTO) 1.1 % (0.2-1.0); EOSINOPHILS # (AUTO) 0.1 x10^3/uL (0.0-0.2); EOSINOPHILS % (AUTO) 1.5 % (0.9-2.9); HEMATOCRIT 37.7 % (36.0-47.0); HEMOGLOBIN 12.1 g/dL (12.0-16.0); LYMPHOCYTES % (AUTO) 25.2 % (21.0-51.0); MEAN CORPUSCULAR HEMOGLOBIN 24.7 pg (27.0-34.0); MEAN CORPUSCULAR HGB CONC 32.1 g/dL (33.0-35.0); MEAN CORPUSCULAR VOLUME 76.8 fL (80.0-100.0); MONOCYTES # (AUTO) 0.8 x10^3/uL (0.3-0.8); MONOCYTES % (AUTO) 9.6 % (0.0-13.0); NEUTROPHILS # (AUTO) 5.1 x10^3/uL (2.2-4.8); NEUTROPHILS % (AUTO) 62.6 % (42.0-75.0); PLATELET COUNT 185 X10^3/uL (150.0-450.0); RED BLOOD COUNT 4.91 X10^6/uL (3.5-5.4); RED CELL DISTRIBUTION WIDTH 16.9 % (11.6-16.5); WHITE BLOOD COUNT 8.1 X10^3/uL (3.6-10.0)
[2017-08-04 12:44] LABS: ALANINE AMINOTRANSFERASE 20 Units/L (12-78); ALBUMIN 3.7 g/dL (3.4-5.0); ALKALINE PHOSPHATASE 51 Units/L (46-116); ASPARTATE AMINO TRANSFERASE 18 Units/L (15-37); BLOOD UREA NITROGEN 11 mg/dL (7-18); CARBON DIOXIDE 26.3 mmol/L (21-32); CHLORIDE 107 mmol/L (98-107); CREATININE 0.71 mg/dL (0.55-1.02); SODIUM 143 mmol/L (136-145); TOTAL PROTEIN 7.2 g/dL (6.4-8.2); eGFR BLACK RACES > 60 (>60); eGFR NON BLACK RACES > 60 (>60)
[2017-08-04 12:51] LABS: APPEARANCE,URINE HAZY (CLEAR); BLOOD/HEMOGLOBIN,URINE 1+ (NEGATIVE); COLOR,URINE YELLOW (YELLOW); GLUCOSE, URINE NEGATIVE (NEGATIVE); KETONES,URINE NEGATIVE (NEGATIVE); NITRITES,URINE NEGATIVE (NEGATIVE); PH,URINE 6.5 (5.0 - 8.0); PROTEIN,URINE 1+ (NEGATIVE)
[2017-08-04 12:52] LABS: BACTERIA,URINE TRACE /HPF (NEGATIVE); BILIRUBIN,URINE NEGATIVE (NEGATIVE); LEUKOCYTE ESTERASE ,URINE 1+ (NEGATIVE); RBC,URINE 0-2 /HPF (NEGATIVE); SQUAMOUS EPITHELIAL CELL,UR MODERATE /HPF (NEGATIVE); UROBILINOGEN,URINE 1+ (NORMAL)
[2017-08-04 12:59] LABS: HYPOCHROMASIA SLIGHT; MICROCYTOSIS SLIGHT; PLATELET MORPHOLOGY COMMENT NORMAL (NORMAL)
[2017-08-04] MEDS ORDERED: DIPRIVAN VIAL 20 ML ONE (13:04)
[2017-08-04 13:37] VITALS: BP 131/62
--- NOTE | 2017-08-04 15:32 | RAD ---
Examination: Chest, PA and lateral views History: Preop Comparison reference: 02/17/2017 Findings: Continued normal heart size, arteriosclerotic aortic arch, clear lungs and pleural spaces. There is no evidence for hilar enlargement. Impression: No interval change or acute abnormality demonstrated. Reported By:
== END 2017-08-04 13:43 | disposition home or self-care (01) ==
LOC: SURG1 11:43
PROVIDERS: ATTEND Internal Medicine Gastroenterology
PROC: 0DJ08ZZ Inspection of Upper Intestinal Tract, Via Natural or Artificial Opening Endoscopic (ICD-10-PCS; principal; 2017-08-04 16:30)
PROC: 0DB68ZX Excision of Stomach, Via Natural or Artificial Opening Endoscopic, Diagnostic (ICD-10-PCS; principal; 2017-08-04 16:30)
DX: K21.9 Gastro-esophageal reflux disease without esophagitis (principal); K25.9 Gastric ulcer, unspecified as acute or chronic, without hemorrhage or perforation; R10.13 Epigastric pain; K29.60 Other gastritis without bleeding; K20.8 Other esophagitis
CPT/HCPCS: 36415; 71020; 80053; 81001; 85025; 85610; 85730; 86140; 87640; 87641; 93005; 93010; A4217; J3490; J7120

== ENCOUNTER → 2017-08-10 | Day surgery (SDC) | payer OTHER, MEDICAID ==
[~2017-08-10] MED LIST changes: +ADRENALINE CHL INJ ONE; +BACTROBAN OINT ONE; +D5 LR 1000 ML 1,000 ML IV ONE; +DIPRIVAN VIAL ONE; +EPHEDRINE SULFATE INJ ONE; +FENTANYL INJ 100 mcg ONE; +LR 1000 ML IV 1,000 ML IV ONE; +LTA KIT LIDOCAINE 4% ONE; +NAROPIN 0.75% EPI ONE; -NS 100 ML IV 100 ML IV ONE; +NS IRRIGATION 3000 ML 3,000 ML with ADRENALINE CHL INJ 1 MG IR ONE; +PERCOCET TAB 5/325 MG PO PRN; +QUELICIN (OR ANECTINE) ONE; +SUPRANE IN ONE; +VERSED ONE; +XYLOCAINE 1% and EPINEPHRINE 1:100,000 ONE; +XYLOCAINE 2 % (PLAIN) ONE; +ZOFRAN INJ 4 MG VIAL IVP PRN; +ZOFRAN INJ 4 MG VIAL ONE
[2017-08-10] MEDS: CLEOCIN VIAL 600 MG ONE ×2 (08:09→08:40)
[2017-08-10 13:23] VITALS: BP 115/68
--- NOTE | 2017-08-10 16:06 | OR.GENERIC ---
Post-Op Note Generic - Post-Op Note Operative Report: date of surgery 08/10/17 Preoperative diagnosis-1 LEFT subacromial impingement 2. LEFT supraspinatus tear. 3. 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 Postoperative diagnosis- 1 LEFT subacromial impingement 2. LEFT slap lesion procedure- LEFT shoulder diagnostic arthroscopy, debridement f SLAP lesion, subacromial decompression and acromioplasty Indication-patient 67-year-old female has been having issues with her LEFT shoulder for many months now. She has tried conservative management in the form of medications, physical therapy and braces and has failed. She reports she has had similar episodes in the past about a few years ago which she got a scope done and it helped her significantly after surgery. She reports into same symptoms that she is having at this time. Treatment discussions were done with her. She wanted to proceed with an arthroscopic subacromial decompression with acromioplasty. Preoperative MRI also showed an incidental degenerative SLAP tear. Patient was taken through the procedure in detail. Pre-and postop instructions were given to her. Complications including but not limited to infection, stiffness of the shoulder, limitation of movement of that LEFT shoulder,persistent pain, repeat surgery were discussed with her. She understood and verbalized same. Consent is obtained. Procedure-patient was seen in the preop holding area. The patient got an interscalene block. patient got appropriate antibiotic. Consent was again revisited. Limb was marked. Patient was brought to the operating room and placed supine. General anesthesia was induced and endotracheal intubation done. She was placed in a beachchair position and her neck and head were held in position with multiple straps. LEFT shoulder prepped and draped. Landmarks were marked. Posterior soft spot was identified and joint injected with 30 cc. Posterior portal established. Under direct visualization anterior portal established. Probe placed through the anterior portal and diagnostic arthroscopy begun. Humeral head grade 1 chondromalacia changes seen. Glenoid also showed corresponding grade 1 chondromalacia. There was a SLAP tear which was degenerative and was found to be stable on probing. Intra-articular biceps tendon was found to be normal without any additions or wear and tear. The axillary pouch was also visualized and no foreign bodies were noted. The glenohumeral ligaments were also found to be normal. The rotator cuff was visualized and there was minimal fraying noted on the articular surface which was debrided with the shaver. The SLAP lesion which was degenerative was also shaved down with the shaver.at this time the scope was placed in the subacromial region using the posterior portal. A corresponding anterior portal and a lateral portal was also established under direct visualization. An ArthroCare wand was used to expose the acromionborders as well as the acromioclavicular joint. Using a shaver thorough debridement of the subacromial space was done. There were no rotator cuff tears noted on the bursal side. The anterolateral part of the acromion identified and smoothened with an bone bur. acromioclavicular joint joint was visualized and there was a previous lateral and clavicle excision done.coracoacromial ligament was identified and was released off the acromion. The wound was closed. Sterile dressing applied. Patient awoken up from surgery. Shifted to the PACU in a stable condition. The patient's family met in the waiting room and updated about the surgery. Postop instructions including keeping the dressing clean and dry, regular ice pack and regular medication for discussed with them. She is placed in the arm pouch. Advised to follow-up on Tuesday.
== END | disposition home or self-care (01) | DRG 508 ==
LOC: SURG1 07:27
PROVIDERS: ATTEND Orthopaedic Surgery
PROC: 0RQK4ZZ Repair Left Shoulder Joint, Percutaneous Endoscopic Approach (ICD-10-PCS; principal; 2017-08-10 08:30)
PROC: 0RNK4ZZ Release Left Shoulder Joint, Percutaneous Endoscopic Approach (ICD-10-PCS; principal; 2017-08-10 08:30)
DX: M75.42 Impingement syndrome of left shoulder (principal); M75.102 Unspecified rotator cuff tear or rupture of left shoulder, not specified as traumatic; S43.432A Superior glenoid labrum lesion of left shoulder, initial encounter; X58.XXXA Exposure to other specified factors, initial encounter; M13.812 Other specified arthritis, left shoulder
CPT/HCPCS: 64415; A4216; A4222; J0170; J0330; J2001; J2250; J2405; J3010; J3490; J7120; S0077

== ENCOUNTER → 2017-08-29 | Outpatient (CLI) | payer OTHER, MEDICAID ==
[2017-08-10 13:23] VITALS: BP 115/68
--- NOTE | 2017-08-29 13:03 | RAD ---
Examination: Left shoulder, three views History: Osteoarthrosis Comparison reference 05/19/2017 Findings: No definite fracture, dislocation, osteolytic disease or pathologic calcification. There is minimal narrowing of the glenohumeral joint. Impression: No acute or significant abnormality or interval change noted since prior study. Reported By:
== END ==
LOC: RAD 12:23
PROVIDERS: ATTEND Orthopaedic Surgery
DX: M19.012 Primary osteoarthritis, left shoulder (principal)
CPT/HCPCS: 73030

== ENCOUNTER 2019-10-04 10:39 | Inpatient (IN) ==
[2019-10-04 10:51] VITALS: BMI 21.9
[2019-10-04] MEDS ORDERED: SOLU-Medrol 125 MG VIAL IVP ONE (11:02)
[2019-10-04] MEDS ORDERED: SOLU-Medrol 125 MG VIAL ONE (11:05)
--- NOTE | 2019-10-04 11:11 | DR.SOBA ---
HPI Time Seen Time Seen by Provider: 10/04/19 11:00 Primary Care Physician Primary Care Physician: SRI MENDENHALL HPI Comment HPI Comment: lives in assisted living. Brought here by EMS because of SOB. Complaints Chief Complaint Doctors Comments: SOB for 4 weeks. Has been tx'd with steroids and ABX w/o relief. She has inhalers and a nebulizer, not helping. Low grade fever. Green sputum. Sx's worse for past 24 hours. She decided she needed to come to E.D. Chief Complaint:: PT. C/O SHORTNESS OF BREATH, WEAKNESS AND COUGH X 1 MONTH. PT. STATES SHE HAS BEEN SICK FOR ABOUT A MONTH AND HAS SEEN HER PCP AND IS CURRENTLY ON ANTIBIOTICS. PT. STATES HER SHORTNESS OF BREATH WORSENED YESTERDAY. PT. IS O2 DEPENDENT AT HOME. REPORTS TO HAVE A PRODUCTIVE COUGH, GREEN IN COLOR. PT. IS VE RY WINDED WHEN SHE TRIES TO TALK. PT. HAS BEEN USING INHALER AND NEBULIZER AT HOME WITH NO IMPROVEMENT. Reviewed Nurses Notes Reviewed: Yes Source History Provided: Patient and EMS Mode of Arrival Mode of Arrival: EMS Timing Onset of Chief Complaint: 10/03/19 Context PE Risk Factors:: None History of:: COPD; denies CHF and DVT/PE Currently on:: Inhaled Bronchodilators and Steroids Prehospital Care:: None Modifying Factors Worsens:: Exertion Improves:: Nothing Associated Signs and Symptoms Associated Signs and Symptoms: Fever, Wheeze, Cough and Anxiety; denies Hemoptysis and Chest Pain If Chest Pain Quality: Other (lungs feel tight) If Cough Cough: Green PMH PMH Past Medical History: Yes Past Medical History: Arthritis, COPD, CVA and Hypertension; denies Angina, Coronary Artery Disease and Diabetes Past Surgical History: Yes Surgical History: Cholecystectomy, Hysterectomy and Ortho Surgery Family History History of Family Medical Conditions: Yes Family Medical History: Cancer Social History Does patient currently use any type of tobacco product: Yes Have you used tobacco products in the last 12 months: Yes Type of Tobacco Use: quit 3 months ago Does any household member use tobacco: No Alcohol Use: None Do you use any recreational Drugs:: No Lives With: Alone Lives Where: Assisted Care infectious screening In the last 2 months have you had wt loss of >10#?: NO Have you had fever, night sweats or hemotysis?: Yes Have you traveled outside the country in the last 6 months?: No Isolation: Standard ROS Review of Systems Constitutional: Fever; negative Diaphoresis Respiratoy: Productive Cough, Hacking Cough, Short of Breath and Wheezing Cardiovascular: Other (chest wall tenderness right); negative Edema and Palpitations Gastrointestinal/Abdominal: No Symptoms Reported All Other Systems: Reviewed and Negative PE Vital Signs Vitals: Temperature 97.0 F Pulse Rate 97 Respiratory Rate 24 Blood Pressure [Left Arm] 119/56 Blood Pressure [Right Arm] 161/70 Blood Pressure 166/72 O2 Sat by Pulse Oximetry 94 General Limitations: No Limitations General Appearance: Alert, Anxious and Other (moil-mod resp distress, but can speak in 5-6 word sentences) Eyes Eye exam: Normal Appearance Neck Neck Exam: Normal Inspection and Full ROM Chest Chest Inspection: Normal Inspection and Tenderness (very tender along right lateral ribs, no deformity or crepitance.); negative Rash Respiratory Respiratory Exam: Accessory Muscle Use and Prolonged Expiratory Phase Respiratory Exam: Bilateral: Wheezing and Bilateral: Rhonchi Cardiovascular Cardiovascular Exam: Regular Rate, Normal Rhythm and Normal Heart Sounds Abdominal Exam Abdominal Exam: Normal Inspection Extremities Extremities Exam: Full ROM and Normal Capillary Refill; negative Edema Neurologic Neurological Exam: Alert and Oriented X3 Psychiatric Psychiatric Exam: Normal Affect and Anxious Skin Skin Exam: Warm, Dry and Normal Color; negative Rash and Diaphoresis MDM Differential Diagnosis Differential Diagnosis: Bronchitis, COPD and Pneumonia COURSE Treatment Treatment: nebs, ABX Reevaluation 1st: Unchanged Consultation Consultation Comments: Dr. Mcdaniel agrees to admit for COPD exacerbation, bacterial bronchitis ROR Labs Reviewed Laboratory Results Reviewed?: Yes Result Diagrams: 10/04/19 11:10 10/04/19 11:10 Laboratory: WBC 13.5 X10^3/uL (3.6-10.0) H 10/04/19 11:10 RBC 5.60 X10^6/uL (3.5-5.4) H 10/04/19 11:10 Hgb 12.6 g/dL (12.0-16.0) 10/04/19 11:10 Hct 40.9 % (36.0-47.0) 10/04/19 11:10 MCV 73.1 fL (80.0-100.0) L 10/04/19 11:10 MCH 22.4 pg (27.0-34.0) L 10/04/19 11:10 MCHC 30.7 g/dL (33.0-35.0) L 10/04/19 11:10 RDW 19.0 % (11.6-16.5) H 10/04/19 11:10 Plt Count 235 X10^3/uL (150.0-450.0) 10/04/19 11:10 Plt Count Comment Adequate (ADEQUATE) 10/04/19 11:10 MPV 10.4 fL (7.4-11.0) 10/04/19 11:10 Neut % (Auto) 65.5 % (42.0-75.0) 10/04/19 11:10 Lymph % (Auto) 22.2 % (21.0-51.0) 10/04/19 11:10 [place] % (Auto) 10.2 % (0.0-13.0) 10/04/19 11:10 Eos % (Auto) 1.3 % (0.9-2.9) 10/04/19 11:10 Baso % (Auto) 0.8 % (0.2-1.0) 10/04/19 11:10 Neut # (Auto) 8.9 x10^3/uL (2.2-4.8) H 10/04/19 11:10 Lymph # (Auto) 3.0 X10^3/uL (1.3-2.9) H 10/04/19 11:10 [place] # (Auto) 1.4 x10^3/uL (0.3-0.8) H 10/04/19 11:10 Eos # (Auto) 0.2 x10^3/uL (0.0-0.2) 10/04/19 11:10 Baso # (Auto) 0.1 X10^3/uL (0.0-0.1) 10/04/19 11:10 Absolute Nucleated RBC 0.2 /100WBC 10/04/19 11:10 Plt Morphology Comment Normal (NORMAL) 10/04/19 11:10 RBC Morphology Abnormal (NORMAL) A 10/04/19 11:10 Hypochromasia 1+ A 10/04/19 11:10 Anisocytosis Slight A 10/04/19 11:10 Microcytosis Slight A 10/04/19 11:10 Sodium 142 mmol/L (136-145) 10/04/19 11:10 Corrected Sodium 142 mmol/L (136-145) 10/04/19 11:10 Potassium 4.5 mmol/L (3.5-5.1) 10/04/19 11:10 Chloride 104 mmol/L (98-107) 10/04/19 11:10 Carbon Dioxide 31.1 mmol/L (21-32) 10/04/19 11:10 BUN 19 mg/dL (7-18) H 10/04/19 11:10 Creatinine 0.89 mg/dL (0.55-1.02) 10/04/19 11:10 Est GFR (MDRD) Af Amer > 60 (>60) 10/04/19 11:10 Est GFR (MDRD) Non-Af > 60 (>60) 10/04/19 11:10 Glucose 119 mg/dL (65-99) H 10/04/19 11:10 Calcium 10.2 mg/dL (8.5-10.1) H 10/04/19 11:10 Corrected Calcium TNP 10/04/19 11:10 Magnesium 1.9 mg/dL (1.7-2.9) 10/04/19 11:10 Total Bilirubin 0.30 mg/dL (0.2-1.0) 10/04/19 11:10 AST 11 Units/L (15-37) L 10/04/19 11:10 ALT 20 Units/L (12-78) 10/04/19 11:10 Alkaline Phosphatase 47 Units/L (46-116) 10/04/19 11:10 Creatine Kinase 15 Units/L (26-192) L 10/04/19 11:10 CK-MB (CK-2) 1.4 ng/mL (0-4.0) 10/04/19 11:10 CK/CKMB % Calc 9.3 % (<4) 10/04/19 11:10 Troponin I < 0.02 ng/mL (0-1.5) 10/04/19 11:10 Total Protein 7.1 g/dL (6.4-8.2) 10/04/19 11:10 Albumin 3.9 g/dL (3.4-5.0) 10/04/19 11:10 Globulin 3.2 g/dL (2.5-4.5) 10/04/19 11:10 Albumin/Globulin Ratio 1.2 Ratio (1.1-2.1) 10/04/19 11:10 XRAY XRAY Interpreted by: Radiologist XRAY Findings: COPD, nothing acute EKG Rate: 94 [place]: Normal Rhythm: NSR and PACs Block: None ST: Normal Opioid Opioid Risk Tool Age (Ferdinand box if 16-45): No History of Preadolescent Sexual Abuse: No Total: 0 Total Score Risk Category: Low Risk Copyright: Elver GREEN predicting aberrant behaviors Diagnosis Discharge Problem: COPD exacerbation, Acute bronchitis Instructions Forms: Excuse From Work Patient Portal
[2019-10-04 11:30] LABS: BASOPHILS # (AUTO) 0.1 X10^3/uL (0.0-0.1); BASOPHILS % (AUTO) 0.8 % (0.2-1.0); EOSINOPHILS # (AUTO) 0.2 x10^3/uL (0.0-0.2); EOSINOPHILS % (AUTO) 1.3 % (0.9-2.9); HEMATOCRIT 40.9 % (36.0-47.0); HEMOGLOBIN 12.6 g/dL (12.0-16.0); LYMPHOCYTES % (AUTO) 22.2 % (21.0-51.0); MEAN CORPUSCULAR HEMOGLOBIN 22.4 pg (27.0-34.0); MEAN CORPUSCULAR HGB CONC 30.7 g/dL (33.0-35.0); MEAN CORPUSCULAR VOLUME 73.1 fL (80.0-100.0); MEAN PLATELET VOLUME 10.4 fL (7.4-11.0); MONOCYTES # (AUTO) 1.4 x10^3/uL (0.3-0.8); MONOCYTES % (AUTO) 10.2 % (0.0-13.0); NEUTROPHILS # (AUTO) 8.9 x10^3/uL (2.2-4.8); NEUTROPHILS % (AUTO) 65.5 % (42.0-75.0); PLATELET COUNT 235 X10^3/uL (150.0-450.0); WHITE BLOOD COUNT 13.5 X10^3/uL (3.6-10.0)
--- NOTE | 2019-10-04 11:30 | RAD ---
HISTORYShortness of breathSTUDMAMIE MERCEDES/LAT [id number] heart is within normal limits in size. The padmini are normal. The lungs are well inflated and free of acute alveolar infiltrates. No pleural effusions are identified. The bony thorax is unremarkable.IMPRESSIONNo significant abnormality identifiedElectronically signed by: ELLIOT CARBONE (Oct 04, 2019 11:29:45)
[2019-10-04 11:34] LABS: ANISOCYTOSIS SLIGHT; HYPOCHROMASIA 1+; MICROCYTOSIS SLIGHT; PLATELET MORPHOLOGY COMMENT NORMAL (NORMAL)
[2019-10-04 11:39] LABS: BLOOD UREA NITROGEN 19 mg/dL (7-18); CALCIUM 10.2 mg/dL (8.5-10.1); CARBON DIOXIDE 31.1 mmol/L (21-32); CHLORIDE 104 mmol/L (98-107); COR NA(FOR HYPERGLY) 142 mmol/L (136-145); CREATININE 0.89 mg/dL (0.55-1.02); SODIUM 142 mmol/L (136-145); TROPONIN I < 0.02 ng/mL (0-1.5); eGFR NON BLACK RACES > 60 (>60)
[2019-10-04 11:43] LABS: ALANINE AMINOTRANSFERASE 20 Units/L (12-78); ALBUMIN 3.9 g/dL (3.4-5.0); ALKALINE PHOSPHATASE 47 Units/L (46-116); ASPARTATE AMINO TRANSFERASE 11 Units/L (15-37); CKMB % 9.3 % (<4); CREATINE KINASE 15 Units/L (26-192); CREATINE KINASE MB 1.4 ng/mL (0-4.0); MAGNESIUM 1.9 mg/dL (1.7-2.9); TOTAL PROTEIN 7.1 g/dL (6.4-8.2)
[2019-10-04] MEDS ORDERED: ROCEPHIN VIAL 1 GRAM 1 G in NS 100 ML IV + SPIKE MINIBAG* 100 ML IV ONE (12:37)
[2019-10-04] MEDS ORDERED: ZITHROMAX INJ 500 MG VIAL 500 MG in NS 250 ML IV 250 ML IV SCH (12:37)
[2019-10-04] MEDS ORDERED: NS 100 ML IV 100 ML IV ONE (12:40)
[2019-10-04] MEDS ORDERED: ROCEPHIN VIAL 1 GRAM ONE (12:41)
[2019-10-04] MEDS ORDERED: NS 1/2 1000 ML IV 1,000 ML IV ONE (12:43)
[2019-10-04] MEDS ORDERED: DUONEB 0.5 MG/3 MG (3 mL) NEB ONE (13:00)
[2019-10-04] MEDS ORDERED: NS 1/2 1000 ML IV 1,000 ML IV SCH (13:00)
[2019-10-04] MEDS: DUONEB 0.5 MG/3 MG (3 mL) NEB ONE ×2 (13:04→13:06)
[2019-10-04] MEDS ORDERED: TORADOL 30 MG VIAL ONE (13:15)
[2019-10-04] MEDS ORDERED: TORADOL 30 MG VIAL IVP ONE (13:15)
[2019-10-04] MEDS ORDERED: NORCO 7.5/325 MG TAB PO ONE (13:26)
[2019-10-04] MEDS ORDERED: ZITHROMAX INJ 500 MG VIAL IV ONE (13:54)
[2019-10-04] MEDS ORDERED: NORCO 7.5/325 MG TAB ONE (13:54)
[2019-10-04] MEDS ORDERED: NS 250 ML IV 250 ML IV ONE (13:54)
[2019-10-04] MEDS ORDERED: ZOFRAN INJ 4 MG VIAL IVP ONE (15:39)
[2019-10-04] MEDS ORDERED: ZOFRAN INJ 4 MG VIAL ONE (15:40)
[2019-10-04] MEDS ORDERED: TUSSIONEX PENNKINETIC SUSP PO PRN (16:41)
[2019-10-04] MEDS ORDERED: ROCEPHIN VIAL 1 GRAM 1 G in NS 100 ML IV + SPIKE MINIBAG* 100 ML IV SCH (16:41)
--- NOTE | 2019-10-04 16:49 | DR.H&P ---
H&P History & Physical for Day of: H&P Date: 10/04/19 Chief Complaint Chief Complaint: Shortness of breath Allergies Allergies Allergy/AdvReac Type Severity Reaction Status Date / Time hydroxyzine Allergy Verified 10/04/19 11:12 Penicillins Allergy Verified 10/04/19 10:48 vancomycin Allergy Verified 10/04/19 10:48 History of Present Illness History of Present Illness: Pt is a 69 yo f pmhx COPD, HTN, CVA, presenting from assisted living via EMS d/t shortness of breath. She states her symptoms have been gradually worsening over the past 4 weeks and acutely worsened over the past day. She failed outpatient treatment with steroids(Medrol dose pack) and antibiotics(Levaquin). She is on chronic supplemental O2(BL 2L) does use inhalers and a nebulizer at home that has not provided any relief. Reports associated sx of fever, chills, productive cough(green sputum). Initial labs/imaging:CXR negative, WBC 13.5, Troponin negative, Flu negative. In ED, she received IV solumedrol, Rocephin, Azithromycin, Duonebs. Past Medical History Past Medical History: Arthritis, COPD, CVA and Hypertension; denies Angina, Coronary Artery Disease and Diabetes Additional Medical History: Vision Deficit, Stave Grader is Dr. Thurston, Emphysema, Previous Blood Transfusion Past Surgical History Surgical History: Cholecystectomy, Hysterectomy and Ortho Surgery Additional Surgical History: Tubal Ligation, Hernia Repair Family History Family Medical History: Cancer Social History Does patient currently use any type of tobacco product: Yes Have you used tobacco products in the last 12 months: Yes Type of Tobacco Use: quit 3 months ago Does any household member use tobacco: No Alcohol Use: None Medications Home Medications: hydroxyzine Allergy (Verified 10/04/19 11:12) Penicillins Allergy (Verified 10/04/19 10:48) vancomycin Allergy (Verified 10/04/19 10:48) CONTINUE taking the following medications dexlansoprazole [Dexilant] 60 mg PO DAILY 10/04/19 [History] dicyclomine 20 mg PO TID PRN 10/04/19 [History] levofloxacin [Levaquin] 500 mg PO DAILY 10/04/19 [History] methylprednisolone [Medrol (Juan)] 4 mg PO USEASDIRECTD 10/04/19 [History] montelukast [Singulair] 10 mg PO DAILY 10/04/19 [History] oseltamivir 75 mg PO BID 10/04/19 [History] ropinirole 0.25 mg PO TID 10/04/19 [History] venlafaxine 225 mg PO DAILY 10/04/19 [History] Labs Result Diagrams: 10/04/19 11:10 10/04/19 11:10 Labs: 10/04/19 13:14 Sputum - Expectorated Sputum - Final Laboratory WBC 13.5 X10^3/uL (3.6-10.0) H 10/04/19 11:10 RBC 5.60 X10^6/uL (3.5-5.4) H 10/04/19 11:10 Hgb 12.6 g/dL (12.0-16.0) 10/04/19 11:10 Hct 40.9 % (36.0-47.0) 10/04/19 11:10 MCV 73.1 fL (80.0-100.0) L 10/04/19 11:10 MCH 22.4 pg (27.0-34.0) L 10/04/19 11:10 MCHC 30.7 g/dL (33.0-35.0) L 10/04/19 11:10 RDW 19.0 % (11.6-16.5) H 10/04/19 11:10 Plt Count 235 X10^3/uL (150.0-450.0) 10/04/19 11:10 Plt Count Comment Adequate (ADEQUATE) 10/04/19 11:10 MPV 10.4 fL (7.4-11.0) 10/04/19 11:10 Neut % (Auto) 65.5 % (42.0-75.0) 10/04/19 11:10 Lymph % (Auto) 22.2 % (21.0-51.0) 10/04/19 11:10 [place] % (Auto) 10.2 % (0.0-13.0) 10/04/19 11:10 Eos % (Auto) 1.3 % (0.9-2.9) 10/04/19 11:10 Baso % (Auto) 0.8 % (0.2-1.0) 10/04/19 11:10 Neut # (Auto) 8.9 x10^3/uL (2.2-4.8) H 10/04/19 11:10 Lymph # (Auto) 3.0 X10^3/uL (1.3-2.9) H 10/04/19 11:10 [place] # (Auto) 1.4 x10^3/uL (0.3-0.8) H 10/04/19 11:10 Eos # (Auto) 0.2 x10^3/uL (0.0-0.2) 10/04/19 11:10 Baso # (Auto) 0.1 X10^3/uL (0.0-0.1) 10/04/19 11:10 Absolute Nucleated RBC 0.2 /100WBC 10/04/19 11:10 Plt Morphology Comment Normal (NORMAL) 10/04/19 11:10 RBC Morphology Abnormal (NORMAL) A 10/04/19 11:10 Hypochromasia 1+ A 10/04/19 11:10 Anisocytosis Slight A 10/04/19 11:10 Microcytosis Slight A 10/04/19 11:10 Sodium 142 mmol/L (136-145) 10/04/19 11:10 Corrected Sodium 142 mmol/L (136-145) 10/04/19 11:10 Potassium 4.5 mmol/L (3.5-5.1) 10/04/19 11:10 Chloride 104 mmol/L (98-107) 10/04/19 11:10 Carbon Dioxide 31.1 mmol/L (21-32) 10/04/19 11:10 BUN 19 mg/dL (7-18) H 10/04/19 11:10 Creatinine 0.89 mg/dL (0.55-1.02) 10/04/19 11:10 Est GFR (MDRD) Af Amer > 60 (>60) 10/04/19 11:10 Est GFR (MDRD) Non-Af > 60 (>60) 10/04/19 11:10 Glucose 119 mg/dL (65-99) H 10/04/19 11:10 Calcium 10.2 mg/dL (8.5-10.1) H 10/04/19 11:10 Corrected Calcium TNP 10/04/19 11:10 Magnesium 1.9 mg/dL (1.7-2.9) 10/04/19 11:10 Total Bilirubin 0.30 mg/dL (0.2-1.0) 10/04/19 11:10 AST 11 Units/L (15-37) L 10/04/19 11:10 ALT 20 Units/L (12-78) 10/04/19 11:10 Alkaline Phosphatase 47 Units/L (46-116) 10/04/19 11:10 Creatine Kinase 15 Units/L (26-192) L 10/04/19 11:10 CK-MB (CK-2) 1.4 ng/mL (0-4.0) 10/04/19 11:10 CK/CKMB % Calc 9.3 % (<4) 10/04/19 11:10 Troponin I < 0.02 ng/mL (0-1.5) 10/04/19 11:10 Total Protein 7.1 g/dL (6.4-8.2) 10/04/19 11:10 Albumin 3.9 g/dL (3.4-5.0) 10/04/19 11:10 Globulin 3.2 g/dL (2.5-4.5) 10/04/19 11:10 Albumin/Globulin Ratio 1.2 Ratio (1.1-2.1) 10/04/19 11:10 Influenza Type A (PCR) Negative (NEGATIVE) 10/04/19 12:42 Influenza Type B (PCR) Negative (NEGATIVE) 10/04/19 12:42 Review of Systems Constitutional: Fever and Chills Eyes: No Symptoms Reported ENT: No Symptoms Reported Respiratory: Cough, Shortness of Breath, Sputum and Wheezing Cardiovascular: No Symptoms Reported Gastrointestinal: No Symptoms Reported Genitourinary: No Symptoms Reported Musculoskeletal: No Symptoms Reported Skin: No Symptoms Reported Neurological: No Symptoms Reported Physical Exam Vital Signs: Temperature 97.0 F Pulse Rate 108 Respiratory Rate 29 Blood Pressure [Left Arm] 119/56 Blood Pressure [Right Arm] 161/70 Blood Pressure 158/68 O2 Sat by Pulse Oximetry 94 Oriented: Normal Eyes: Normal Ear: Normal Nose: Normal Respiratory: Diminished Throughout and Wheezes Throughout Cardiovascular: Tachycardia : Normal Auscultation: Bowel Sounds: Normal Palpation: Normal Tenderness: Normal Skin: Normal Musculoskeletal: Normal Psychiatric: Normal Mood Description: Calm Affect: Anxious Speech Pattern: Clear Assessment/Plan (1) COPD exacerbation: Status: Acute Plan: Continue bronchodilators, Abx, IV steroids scheduled. F/u AM labs. Review H&P Reviewed: Yes Patient was examined?: Yes
[2019-10-04] MEDS: SOLU-Medrol 125 MG VIAL IVP SCH ×2 (16:59→21:48)
[2019-10-04] MEDS: ZITHROMAX INJ 500 MG VIAL 500 MG in D5W 250 ML IV 250 ML IV SCH (17:00)
[2019-10-04] MEDS ORDERED: DUONEB 0.5 MG/3 MG (3 mL) NEB SCH (17:00)
[2019-10-04] MEDS: NORCO 7.5/325 MG TAB PO PRN (17:09)
[2019-10-04] MEDS: DUONEB 0.5 MG/3 MG (3 mL) NEB SCH ×2 (17:10→20:45)
[2019-10-04] MEDS: NS 1000 ML 1,000 ML IV SCH (17:10)
[2019-10-04] MEDS ORDERED: [UNRECOGNIZED DRUG - OTHER] PO SCH (17:15)
[2019-10-04] MEDS ORDERED: VENLAFAXINE 225 MG PO SCH (17:15)
[2019-10-04] MEDS: SINGULAIR TAB 10 MG PO SCH (19:03)
[2019-10-04] MEDS: PULMICORT NEB TX 0.5 MG NEB SCH (20:45)
[2019-10-04] MEDS ORDERED: SIMVASTATIN 80 MG PO SCH (21:00)
[2019-10-04] MEDS ORDERED: PATIENT'S HOME MEDICATION (Ranitidine Hcl 300 MG) PO SCH (21:00)
[2019-10-04] MEDS ORDERED: PATIENT'S HOME MEDICATION (Solifenacin [Vesicare] 5 MG) PO SCH (21:00)
[2019-10-04] MEDS ORDERED: PATIENT'S HOME MEDICATION (Fenofibrate [Fenofibrate 160 Mg] 160 MG) PO SCH (21:00)
[2019-10-04] MEDS: ZOCOR TAB 40 MG PO SCH (21:45)
[2019-10-04] MEDS: TRICOR TAB 160 MG PO SCH (21:46)
[2019-10-04] MEDS: REQUIP PO SCH (21:46)
[2019-10-04] MEDS: NEURONTIN CAP 400 MG PO SCH (21:46)
[2019-10-04] MEDS: XANAX PO PRN (21:47)
[2019-10-04] MEDS: PATIENT'S HOME MEDICATION (Solifenacin [Vesicare] 5 MG) PO SCH (22:00)
[2019-10-04] MEDS ORDERED: MORPHINE SULFATE INJ 2 MG INJ IVP ONE (22:03)
[2019-10-05] MEDS: NS 1000 ML 1,000 ML IV SCH ×5 (00:22→21:14)
[2019-10-05] MEDS: DUONEB 0.5 MG/3 MG (3 mL) NEB SCH ×6 (01:17→20:23)
[2019-10-05] MEDS: SOLU-Medrol 125 MG VIAL IVP SCH ×4 (03:15→21:20)
[2019-10-05] MEDS: NORCO 7.5/325 MG TAB PO PRN (05:54)
[2019-10-05] MEDS: REQUIP PO SCH ×3 (05:54→21:19)
[2019-10-05] MEDS: NEURONTIN CAP 400 MG PO SCH ×3 (05:54→21:19)
[2019-10-05 06:20] LABS: BASOPHILS % (AUTO) 0 % (0.2-1.0); HEMATOCRIT 34.3 % (36.0-47.0); HEMOGLOBIN 10.5 g/dL (12.0-16.0); LYMPHOCYTES # (AUTO) 0.8 X10^3/uL (1.3-2.9); LYMPHOCYTES % (AUTO) 4.1 % (21.0-51.0); MEAN CORPUSCULAR HEMOGLOBIN 22.2 pg (27.0-34.0); MEAN CORPUSCULAR HGB CONC 30.5 g/dL (33.0-35.0); MEAN CORPUSCULAR VOLUME 72.9 fL (80.0-100.0); MEAN PLATELET VOLUME 10.3 fL (7.4-11.0); MONOCYTES # (AUTO) 0.3 x10^3/uL (0.3-0.8); MONOCYTES % (AUTO) 1.8 % (0.0-13.0); NEUTROPHILS # (AUTO) 17.8 x10^3/uL (2.2-4.8); NEUTROPHILS % (AUTO) 94.1 % (42.0-75.0); PLATELET COUNT 209 X10^3/uL (150.0-450.0); RED BLOOD COUNT 4.71 X10^6/uL (3.5-5.4); RED CELL DISTRIBUTION WIDTH 18.5 % (11.6-16.5); WHITE BLOOD COUNT 18.9 X10^3/uL (3.6-10.0)
[2019-10-05 06:49] LABS: ALANINE AMINOTRANSFERASE 18 Units/L (12-78); ALBUMIN 3.2 g/dL (3.4-5.0); ALKALINE PHOSPHATASE 35 Units/L (46-116); ASPARTATE AMINO TRANSFERASE 11 Units/L (15-37); BLOOD UREA NITROGEN 17 mg/dL (7-18); CALCIUM 9.5 mg/dL (8.5-10.1); CARBON DIOXIDE 26.2 mmol/L (21-32); CHLORIDE 106 mmol/L (98-107); COR CA(FOR HYPOALB) 10.1 mg/dL (8.5-10.1); COR NA(FOR HYPERGLY) 142 mmol/L (136-145); CREATININE 0.82 mg/dL (0.55-1.02); SODIUM 140 mmol/L (136-145); eGFR NON BLACK RACES > 60 (>60)
[2019-10-05 07:16] LABS: HYPOCHROMASIA 1+; PLATELET MORPHOLOGY COMMENT NORMAL (NORMAL)
[2019-10-05] MEDS ORDERED: PATIENT'S HOME MEDICATION (Dexlansoprazole [Dexilant] 60 MG) PO SCH (09:00)
[2019-10-05] MEDS: LOPRESSOR TAB 25 MG PO SCH (09:24)
[2019-10-05] MEDS: PriLOSEC PO SCH (09:24)
[2019-10-05] MEDS: CLARITIN PO SCH (09:24)
[2019-10-05] MEDS: HYDROCHLOROTHIAZIDE 12.5 MG CAP PO SCH (09:24)
[2019-10-05] MEDS: SINGULAIR TAB 10 MG PO SCH (09:24)
[2019-10-05] MEDS: ZANTAC PO SCH ×2 (09:24→21:19)
[2019-10-05] MEDS: EFFEXOR TAB 75 MG (BID DOSING) PO SCH (09:24)
[2019-10-05] MEDS: PROTONIX TAB 40 MG PO SCH (09:24)
[2019-10-05] MEDS: ZITHROMAX INJ 500 MG VIAL 500 MG in D5W 250 ML IV 250 ML IV SCH (09:25)
[2019-10-05 09:30] LABS: ABG BASE EXCESS 2.4 mmol/L (-2.0-2.0); ABG HCO3 26.4 mmol/L (22-26)
[2019-10-05] MEDS: PULMICORT NEB TX 0.5 MG NEB SCH ×2 (09:42→20:23)
[2019-10-05 11:19] LABS: BILIRUBIN,URINE NEGATIVE (NEGATIVE); BLOOD/HEMOGLOBIN,URINE NEGATIVE (NEGATIVE); GLUCOSE, URINE NEGATIVE (NEGATIVE); KETONES,URINE NEGATIVE (NEGATIVE); LEUKOCYTE ESTERASE ,URINE NEGATIVE (NEGATIVE); NITRITES,URINE NEGATIVE (NEGATIVE); PROTEIN,URINE NEGATIVE (NEGATIVE); UROBILINOGEN,URINE NORMAL (NORMAL)
[2019-10-05 11:20] LABS: APPEARANCE,URINE CLEAR (CLEAR); COLOR,URINE YELLOW (YELLOW)
--- NOTE | 2019-10-05 11:37 | RAD ---
HISTORYBACTERIAL BRONCHTIS, PNEUMONIASTUDMAGO, PA/LAT ADULTCOMPARISONJanuary 2019FINDINGSThe patient is rotated. The cardiac silhouette is at the upper limits of normal. Atelectasis and/or infiltrate are noted within the left lower lobe..IMPRESSIONLeft basilar atelectasis and/or infiltrate. Correlate clinically.Electronically signed by: ARIES NOLASCO (Oct 05, 2019 11:36:18)
[2019-10-05] MEDS: NORCO 10/325 TAB PO PRN ×2 (17:03→22:15)
[2019-10-05 19:30] LABS: CKMB % 11.9 % (<4); CREATINE KINASE MB 3.8 ng/mL (0-4.0); TROPONIN I 0.03 ng/mL (0-1.5)
[2019-10-05] MEDS: PATIENT'S HOME MEDICATION (Solifenacin [Vesicare] 5 MG) PO SCH ×2 (21:16→21:17)
[2019-10-05] MEDS: XANAX PO PRN (21:19)
[2019-10-05] MEDS: TRICOR TAB 160 MG PO SCH (21:19)
[2019-10-05] MEDS: ZOCOR TAB 40 MG PO SCH (21:19)
[2019-10-06] MEDS: DUONEB 0.5 MG/3 MG (3 mL) NEB SCH ×6 (00:35→20:21)
[2019-10-06] MEDS: NS 1000 ML 1,000 ML IV SCH ×4 (00:56→17:06)
[2019-10-06] MEDS: SOLU-Medrol 125 MG VIAL IVP SCH ×3 (03:35→21:11)
[2019-10-06] MEDS: REQUIP PO SCH ×3 (05:36→21:12)
[2019-10-06] MEDS: NEURONTIN CAP 400 MG PO SCH ×3 (05:36→21:12)
[2019-10-06 07:07] LABS: BASOPHILS % (AUTO) 0.1 % (0.2-1.0); HEMATOCRIT 32.2 % (36.0-47.0); HEMOGLOBIN 9.7 g/dL (12.0-16.0); LYMPHOCYTES # (AUTO) 0.4 X10^3/uL (1.3-2.9); LYMPHOCYTES % (AUTO) 1.8 % (21.0-51.0); MEAN CORPUSCULAR HEMOGLOBIN 22.2 pg (27.0-34.0); MEAN CORPUSCULAR HGB CONC 30.2 g/dL (33.0-35.0); MEAN CORPUSCULAR VOLUME 73.5 fL (80.0-100.0); MEAN PLATELET VOLUME 10.2 fL (7.4-11.0); MONOCYTES # (AUTO) 0.5 x10^3/uL (0.3-0.8); MONOCYTES % (AUTO) 2.1 % (0.0-13.0); NEUTROPHILS # (AUTO) 21.6 x10^3/uL (2.2-4.8); PLATELET COUNT 226 X10^3/uL (150.0-450.0); RED BLOOD COUNT 4.38 X10^6/uL (3.5-5.4); RED CELL DISTRIBUTION WIDTH 18.8 % (11.6-16.5); WHITE BLOOD COUNT 22.5 X10^3/uL (3.6-10.0)
[2019-10-06 07:15] LABS: ALANINE AMINOTRANSFERASE 19 Units/L (12-78); ALBUMIN 3.2 g/dL (3.4-5.0); ALKALINE PHOSPHATASE 34 Units/L (46-116); ASPARTATE AMINO TRANSFERASE 14 Units/L (15-37); BLOOD UREA NITROGEN 14 mg/dL (7-18); CALCIUM 9.2 mg/dL (8.5-10.1); CARBON DIOXIDE 25.3 mmol/L (21-32); CHLORIDE 107 mmol/L (98-107); COR CA(FOR HYPOALB) 9.8 mg/dL (8.5-10.1); COR NA(FOR HYPERGLY) 144 mmol/L (136-145); CREATININE 0.73 mg/dL (0.55-1.02); SODIUM 142 mmol/L (136-145); eGFR NON BLACK RACES > 60 (>60)
[2019-10-06 08:02] LABS: HYPOCHROMASIA 1+; PLATELET MORPHOLOGY COMMENT NORMAL (NORMAL)
[2019-10-06] MEDS: ZANTAC PO SCH ×2 (09:19→21:15)
[2019-10-06] MEDS: SINGULAIR TAB 10 MG PO SCH (09:19)
[2019-10-06] MEDS: PROTONIX TAB 40 MG PO SCH (09:19)
[2019-10-06] MEDS: PriLOSEC PO SCH (09:19)
[2019-10-06] MEDS: ZITHROMAX INJ 500 MG VIAL 500 MG in D5W 250 ML IV 250 ML IV SCH (09:19)
[2019-10-06] MEDS: LOPRESSOR TAB 25 MG PO SCH (09:19)
[2019-10-06] MEDS: EFFEXOR TAB 75 MG (BID DOSING) PO SCH (09:19)
[2019-10-06] MEDS: CLARITIN PO SCH (09:20)
[2019-10-06] MEDS: HYDROCHLOROTHIAZIDE 12.5 MG CAP PO SCH (09:20)
[2019-10-06] MEDS: PULMICORT NEB TX 0.5 MG NEB SCH ×2 (09:21→20:21)
[2019-10-06] MEDS: NORCO 10/325 TAB PO PRN ×3 (10:35→22:47)
[2019-10-06] MEDS: ZOCOR TAB 40 MG PO SCH (21:12)
[2019-10-06] MEDS: TRICOR TAB 160 MG PO SCH (21:12)
[2019-10-06] MEDS: PATIENT'S HOME MEDICATION (Solifenacin [Vesicare] 5 MG) PO SCH (21:13)
[2019-10-06] MEDS: XANAX PO PRN (21:36)
[2019-10-07] MEDS: DUONEB 0.5 MG/3 MG (3 mL) NEB SCH ×6 (00:32→20:27)
[2019-10-07] MEDS: NS 1000 ML 1,000 ML IV SCH ×3 (01:28→17:43)
[2019-10-07] MEDS: NEURONTIN CAP 400 MG PO SCH ×3 (05:05→21:04)
[2019-10-07] MEDS: NORCO 10/325 TAB PO PRN ×4 (05:05→22:53)
[2019-10-07] MEDS: REQUIP PO SCH ×3 (05:05→21:05)
[2019-10-07 05:54] LABS: ALANINE AMINOTRANSFERASE 18 Units/L (12-78); ALBUMIN 2.9 g/dL (3.4-5.0); ALKALINE PHOSPHATASE 30 Units/L (46-116); ASPARTATE AMINO TRANSFERASE 15 Units/L (15-37); BLOOD UREA NITROGEN 14 mg/dL (7-18); CARBON DIOXIDE 27.6 mmol/L (21-32); CHLORIDE 107 mmol/L (98-107); COR CA(FOR HYPOALB) 9.9 mg/dL (8.5-10.1); COR NA(FOR HYPERGLY) 143 mmol/L (136-145); CREATININE 0.71 mg/dL (0.55-1.02); SODIUM 142 mmol/L (136-145); TOTAL PROTEIN 5.5 g/dL (6.4-8.2); eGFR NON BLACK RACES > 60 (>60)
[2019-10-07 06:09] LABS: BASOPHILS % (AUTO) 0 % (0.2-1.0); HEMATOCRIT 29.8 % (36.0-47.0); HEMOGLOBIN 9.2 g/dL (12.0-16.0); LYMPHOCYTES # (AUTO) 0.8 X10^3/uL (1.3-2.9); LYMPHOCYTES % (AUTO) 3.9 % (21.0-51.0); MEAN CORPUSCULAR HEMOGLOBIN 22.6 pg (27.0-34.0); MEAN CORPUSCULAR HGB CONC 30.9 g/dL (33.0-35.0); MEAN CORPUSCULAR VOLUME 73.2 fL (80.0-100.0); MEAN PLATELET VOLUME 10.1 fL (7.4-11.0); MONOCYTES # (AUTO) 0.7 x10^3/uL (0.3-0.8); MONOCYTES % (AUTO) 3.4 % (0.0-13.0); NEUTROPHILS # (AUTO) 18.9 x10^3/uL (2.2-4.8); NEUTROPHILS % (AUTO) 92.7 % (42.0-75.0); PLATELET COUNT 215 X10^3/uL (150.0-450.0); RED BLOOD COUNT 4.08 X10^6/uL (3.5-5.4); RED CELL DISTRIBUTION WIDTH 18.9 % (11.6-16.5); WHITE BLOOD COUNT 20.4 X10^3/uL (3.6-10.0)
[2019-10-07 07:27] LABS: BAND NEUTROPHILS % 1 % (0-10); PLATELET MORPHOLOGY COMMENT NORMAL (NORMAL)
[2019-10-07] MEDS ORDERED: MAGNESIUM SULFATE 1 GRAM/100 mL PREMIX 1 GM/100 ML BAG IV PRN (07:29)
[2019-10-07] MEDS ORDERED: K-RIDER 10 MEQ/NS 100 ML 10 MEQ/100 ML BAG IV PRN (07:29)
[2019-10-07] MEDS ORDERED: KLOR-CON PO PRN (07:29)
[2019-10-07] MEDS ORDERED: POTASSIUM CHL 60 MEQ/NS 0.45% 500 ML IV PRN (07:29)
[2019-10-07] MEDS ORDERED: MICRO K EXTEN CAP 10 MEQ PO PRN (07:29)
[2019-10-07] MEDS ORDERED: POTASSIUM CHLORIDE LIQ 20 MEQ UDC PO PRN (07:29)
[2019-10-07] MEDS ORDERED: POTASSIUM CHL 40 MEQ/NS 0.45% 500 ML IV PRN (07:29)
[2019-10-07] MEDS ORDERED: K-DUR TAB 20 MEQ PO PRN (07:29)
[2019-10-07] MEDS: PULMICORT NEB TX 0.5 MG NEB SCH ×2 (08:56→20:27)
[2019-10-07] MEDS: LOPRESSOR TAB 25 MG PO SCH (09:11)
[2019-10-07] MEDS: HYDROCHLOROTHIAZIDE 12.5 MG CAP PO SCH (09:11)
[2019-10-07] MEDS: EFFEXOR TAB 75 MG (BID DOSING) PO SCH (09:11)
[2019-10-07] MEDS: CLARITIN PO SCH (09:11)
[2019-10-07] MEDS: SINGULAIR TAB 10 MG PO SCH (09:12)
[2019-10-07] MEDS: PriLOSEC PO SCH (09:12)
[2019-10-07] MEDS: PROTONIX TAB 40 MG PO SCH (09:12)
[2019-10-07] MEDS: SOLU-Medrol 125 MG VIAL IVP SCH (09:15)
[2019-10-07] MEDS: ZANTAC PO SCH ×2 (09:15→20:46)
[2019-10-07] MEDS: ZITHROMAX INJ 500 MG VIAL 500 MG in D5W 250 ML IV 250 ML IV SCH (09:16)
[2019-10-07] MEDS: DIFLUCAN 200 MG IV PREMIX* 200 MG/100 ML BAG IV SCH (11:54)
[2019-10-07] MEDS: TRICOR TAB 160 MG PO SCH (20:42)
[2019-10-07] MEDS: ZOCOR TAB 40 MG PO SCH (20:43)
[2019-10-07] MEDS: PATIENT'S HOME MEDICATION (Solifenacin [Vesicare] 5 MG) PO SCH (20:43)
[2019-10-07] MEDS: XANAX PO PRN (23:59)
[2019-10-08] MEDS: DUONEB 0.5 MG/3 MG (3 mL) NEB SCH ×4 (00:50→13:47)
[2019-10-08] MEDS: NS 1000 ML 1,000 ML IV SCH ×3 (01:17→08:48)
[2019-10-08 05:14] LABS: BASOPHILS % (AUTO) 0.2 % (0.2-1.0); EOSINOPHILS % (AUTO) 0.1 % (0.9-2.9); HEMATOCRIT 27.7 % (36.0-47.0); HEMOGLOBIN 8.6 g/dL (12.0-16.0); LYMPHOCYTES # (AUTO) 1.5 X10^3/uL (1.3-2.9); LYMPHOCYTES % (AUTO) 11.6 % (21.0-51.0); MEAN CORPUSCULAR HEMOGLOBIN 22.5 pg (27.0-34.0); MEAN CORPUSCULAR VOLUME 72.4 fL (80.0-100.0); MEAN PLATELET VOLUME 9.7 fL (7.4-11.0); MONOCYTES # (AUTO) 0.9 x10^3/uL (0.3-0.8); MONOCYTES % (AUTO) 7.1 % (0.0-13.0); NEUTROPHILS # (AUTO) 10.4 x10^3/uL (2.2-4.8); PLATELET COUNT 188 X10^3/uL (150.0-450.0); RED BLOOD COUNT 3.82 X10^6/uL (3.5-5.4); RED CELL DISTRIBUTION WIDTH 18.3 % (11.6-16.5); WHITE BLOOD COUNT 12.8 X10^3/uL (3.6-10.0)
[2019-10-08] MEDS: NEURONTIN CAP 400 MG PO SCH ×2 (05:18→13:57)
[2019-10-08] MEDS: REQUIP PO SCH ×2 (05:18→13:57)
[2019-10-08] MEDS: NORCO 10/325 TAB PO PRN ×2 (05:19→13:02)
[2019-10-08 05:27] LABS: ALANINE AMINOTRANSFERASE 24 Units/L (12-78); ALBUMIN 2.7 g/dL (3.4-5.0); ALKALINE PHOSPHATASE 28 Units/L (46-116); ASPARTATE AMINO TRANSFERASE 10 Units/L (15-37); BLOOD UREA NITROGEN 11 mg/dL (7-18); CARBON DIOXIDE 31.1 mmol/L (21-32); CHLORIDE 107 mmol/L (98-107); CREATININE 0.65 mg/dL (0.55-1.02); SODIUM 143 mmol/L (136-145); TOTAL PROTEIN 5.2 g/dL (6.4-8.2); eGFR NON BLACK RACES > 60 (>60)
[2019-10-08 06:06] LABS: HYPOCHROMASIA 1+; PLATELET MORPHOLOGY COMMENT NORMAL (NORMAL)
[2019-10-08 06:07] LABS: ANISOCYTOSIS SLIGHT; MICROCYTOSIS SLIGHT
--- NOTE | 2019-10-08 08:37 | CT ---
CHEST WITH CONCLINICAL INDICATION: sob, pneumoniaPROCEDURE: Following administration of non-ionic IV contrast, postcontrast CT images were obtained through the chest. Dose reduction techniques including Automated Exposure Control (AEC) and adjustment of mA and kV were utlized.COMPARISON: [None]FINDINGS:The heart is normal in size . No pericardial effusion. Atelectasis in the lingula. No suspicious mediastinal or axillary lymph nodes. Patchy regions ground-glass primarily in the upper lobes bilaterally. No focal consolidations, pleural effusions or pneumothorax .Airways are patent . No suspicious pulmonary nodules or masses .Severe atherosclerotic disease of the aorta with extensive hard and soft plaque 10 likely some penetrating atherosclerotic ulcers.No aggressive osseous lesions.IMPRESSION:1. Patchy ground-glass in the upper lobes bilaterally which may represent infection in the correct clinical setting.2. Severe atherosclerotic disease.Electronically signed by: NATACHA PRESTON (Oct 08, 2019 08:37:16)
--- NOTE | 2019-10-08 08:42 | PCM.PROG ---
Progress Note - Progress Note for Day of Date of Exam: 10/05/19 - Subjective Subjective: PT IS 69 WF ER ADMISSION ON 10/04 WITH CO pmhx COPD, HTN, CVA, presenting from assisted living via EMS d/t shortness of breath. She states her symptoms have been gradually worsening over the past 4 weeks and acutely worsened over the past day. She failed outpatient treatment with steroids(Medrol dose pack) and antibiotics(Levaquin). She is on chronic supplemental O2(BL 2L) does use inhalers and a nebulizer at home that has not provided any relief. Reports associated sx of fever, chills, productive cough(green sputum). SINCE ADMISSION PT HAD BEEN ON IV ROCEPHIN AND ZITHROMAX WITH RESP THERAPY AND IV SOLU MEDROL. PT WBC 18.9 THIS AM WITH SPUTUM SPECIMEN PENDING. PT CONTINUES WITH DIFFUSE EXPIRATORY WHEEZES AND CENTRAL RHONCHI. - Past Medical Family Social History Past Med/Fam/Surg Hx: No changes since H&P Allergies: Allergies hydroxyzine Allergy (Verified 10/04/19 11:12) Penicillins Allergy (Verified 10/04/19 10:48) vancomycin Allergy (Verified 10/04/19 10:48) - Review of Systems ROS: No change since H&P - Vital Signs and I&O's Vital Signs: Temperature 98.5 F Pulse Rate [Left Brachial] 74 Pulse Rate 74 Respiratory Rate 19 Blood Pressure [Left Arm] 169/71 Blood Pressure [Right Arm] 151/65 Blood Pressure 158/68 O2 Sat by Pulse Oximetry 96 Intake and Output: Intake & Output 10/05/19 10/06/19 10/07/19 10/08/19 11:59 11:59 11:59 11:59 Intake Total 1190 / 1190 2170 / 2170 3520 / 3520 3710 / 3710 Balance 1190 / 1190 2170 / 2170 3520 / 3520 3710 / 3710 - Physical Exam Oriented: Normal Eyes: Normal Ear: Normal Nose: Normal Respiratory: Diminished, Wheezes, Rhonchi Cardiovascular: Normal. negative: Edema : Normal Auscultation: Bowel Sounds: Normal Tenderness: Normal Skin: Normal Musculoskeletal: Normal Psychiatric: Normal Mood Description: Calm Affect: Anxious Speech Pattern: Clear, Appropriate - Laboratory and Diagnostics Result Diagrams: 10/08/19 04:48 10/08/19 04:48 Labs: 10/05/19 09:35 Blood Blood Culture - Preliminary 10/05/19 09:07 Blood Blood Culture - Preliminary 10/05/19 10:53 Urine,Clean Catch Urine Culture - Final 10/04/19 13:14 Sputum - Expectorated Sputum Sputum Culture - Final 10/04/19 13:14 Sputum - Expectorated Sputum - Final Laboratory WBC 12.8 X10^3/uL (3.6-10.0) H 10/08/19 04:48 RBC 3.82 X10^6/uL (3.5-5.4) 10/08/19 04:48 Hgb 8.6 g/dL (12.0-16.0) L 10/08/19 04:48 Hct 27.7 % (36.0-47.0) L 10/08/19 04:48 MCV 72.4 fL (80.0-100.0) L 10/08/19 04:48 MCH 22.5 pg (27.0-34.0) L 10/08/19 04:48 MCHC 31.0 g/dL (33.0-35.0) L 10/08/19 04:48 RDW 18.3 % (11.6-16.5) H 10/08/19 04:48 Plt Count 188 X10^3/uL (150.0-450.0) 10/08/19 04:48 Plt Count Comment Adequate (ADEQUATE) 10/08/19 04:48 MPV 9.7 fL (7.4-11.0) 10/08/19 04:48 Neut % (Auto) 81.0 % (42.0-75.0) H 10/08/19 04:48 Lymph % (Auto) 11.6 % (21.0-51.0) L 10/08/19 04:48 [place] % (Auto) 7.1 % (0.0-13.0) 10/08/19 04:48 Eos % (Auto) 0.1 % (0.9-2.9) L 10/08/19 04:48 Baso % (Auto) 0.2 % (0.2-1.0) 10/08/19 04:48 Neut # (Auto) 10.4 x10^3/uL (2.2-4.8) H 10/08/19 04:48 Lymph # (Auto) 1.5 X10^3/uL (1.3-2.9) 10/08/19 04:48 [place] # (Auto) 0.9 x10^3/uL (0.3-0.8) H 10/08/19 04:48 Eos # (Auto) 0.0 x10^3/uL (0.0-0.2) 10/08/19 04:48 Baso # (Auto) 0.0 X10^3/uL (0.0-0.1) 10/08/19 04:48 Absolute Nucleated RBC 0.0 /100WBC 10/08/19 04:48 Total Counted 100 10/07/19 05:10 Neutrophils % (Manual) 88 % (39-76) H 10/07/19 05:10 Band Neutrophils % 1 % (0-10) 10/07/19 05:10 Lymphocytes % (Manual) 6 % (13-43) L 10/07/19 05:10 Monocytes % (Manual) 5 % (4-9) 10/07/19 05:10 Plt Morphology Comment Normal (NORMAL) 10/08/19 04:48 RBC Morphology Abnormal (NORMAL) A 10/08/19 04:48 Hypochromasia 1+ A 10/08/19 04:48 Anisocytosis Slight A 10/08/19 04:48 Microcytosis Slight A 10/08/19 04:48 Sample Site Rb 10/05/19 09:22 ABG pH 7.450 (7.35-7.45) 10/05/19 09:22 ABG pCO2 38.0 mmHg (35.0-45.0) 10/05/19 09:22 ABG pO2 72.0 mmHg (80.0-100.0) L 10/05/19 09:22 ABG HCO3 26.4 mmol/L (22-26) H 10/05/19 09:22 ABG O2 Saturation 95.0 % (90-100) 10/05/19 09:22 ABG Base Excess 2.4 mmol/L (-2.0-2.0) H 10/05/19 09:22 Romain Test Na 10/05/19 09:22 A-a Gradient 30.0 mmHg 10/05/19 09:22 FiO2 21.0 10/05/19 09:22 Blood Gas Comments Pt krystal well. cdn 10/05/19 09:22 Sodium 143 mmol/L (136-145) 10/08/19 04:48 Corrected Sodium TNP 10/08/19 04:48 Potassium 3.6 mmol/L (3.5-5.1) 10/08/19 04:48 Chloride 107 mmol/L (98-107) 10/08/19 04:48 Carbon Dioxide 31.1 mmol/L (21-32) 10/08/19 04:48 BUN 11 mg/dL (7-18) 10/08/19 04:48 Creatinine 0.65 mg/dL (0.55-1.02) 10/08/19 04:48 Est GFR (MDRD) Af Amer > 60 (>60) 10/08/19 04:48 Est GFR (MDRD) Non-Af > 60 (>60) 10/08/19 04:48 Glucose 95 mg/dL (65-99) 10/08/19 04:48 Calcium 9.0 mg/dL (8.5-10.1) 10/08/19 04:48 Corrected Calcium 10.0 mg/dL (8.5-10.1) 10/08/19 04:48 Magnesium 1.7 mg/dL (1.7-2.9) 10/07/19 05:10 Total Bilirubin 0.20 mg/dL (0.2-1.0) 10/08/19 04:48 AST 10 Units/L (15-37) L 10/08/19 04:48 ALT 24 Units/L (12-78) 10/08/19 04:48 Alkaline Phosphatase 28 Units/L (46-116) L 10/08/19 04:48 Creatine Kinase 32 Units/L (26-192) 10/05/19 18:38 CK-MB (CK-2) 3.8 ng/mL (0-4.0) 10/05/19 18:38 CK/CKMB % Calc 11.9 % (<4) 10/05/19 18:38 Troponin I 0.03 ng/mL (0-1.5) 10/05/19 18:38 Total Protein 5.2 g/dL (6.4-8.2) L 10/08/19 04:48 Albumin 2.7 g/dL (3.4-5.0) L 10/08/19 04:48 Globulin 2.5 g/dL (2.5-4.5) 10/08/19 04:48 Albumin/Globulin Ratio 1.1 Ratio (1.1-2.1) 10/08/19 04:48 Specimen Type Clean catch urine 10/05/19 10:53 Urine Color Yellow (YELLOW) 10/05/19 10:53 Urine Appearance Clear (CLEAR) 10/05/19 10:53 Urine pH 6.0 (5.0 - 8.0) 10/05/19 10:53 Ur Specific [place] 1.015 (1.000-1.030) 10/05/19 10:53 Urine Protein Negative (NEGATIVE) 10/05/19 10:53 Urine Glucose (UA) Negative (NEGATIVE) 10/05/19 10:53 Urine Ketones Negative (NEGATIVE) 10/05/19 10:53 Urine Occult Blood Negative (NEGATIVE) 10/05/19 10:53 Urine Nitrite Negative (NEGATIVE) 10/05/19 10:53 Urine Bilirubin Negative (NEGATIVE) 10/05/19 10:53 Urine Urobilinogen Normal (NORMAL) 10/05/19 10:53 Ur Leukocyte Esterase Negative (NEGATIVE) 10/05/19 10:53 Influenza Type A (PCR) Negative (NEGATIVE) 10/04/19 12:42 Influenza Type B (PCR) Negative (NEGATIVE) 10/04/19 12:42 - Plan (1) COPD exacerbation Status: Acute Plan: Continue bronchodilators, Abx, IV steroids scheduled. F/u AM labs. Repeat am cxr (2) CVA, old, facial weakness Status: Acute (3) Hypertension, essential Status: Acute
[2019-10-08] MEDS: DIFLUCAN 200 MG IV PREMIX* 200 MG/100 ML BAG IV SCH (08:43)
[2019-10-08] MEDS: HYDROCHLOROTHIAZIDE 12.5 MG CAP PO SCH (08:43)
[2019-10-08] MEDS: EFFEXOR TAB 75 MG (BID DOSING) PO SCH (08:43)
[2019-10-08] MEDS: PROTONIX TAB 40 MG PO SCH (08:43)
[2019-10-08] MEDS: PriLOSEC PO SCH (08:43)
[2019-10-08] MEDS: SINGULAIR TAB 10 MG PO SCH (08:43)
[2019-10-08] MEDS: LOPRESSOR TAB 25 MG PO SCH (08:43)
[2019-10-08] MEDS: CLARITIN PO SCH (08:43)
[2019-10-08] MEDS: ZITHROMAX INJ 500 MG VIAL 500 MG in D5W 250 ML IV 250 ML IV SCH (08:43)
--- NOTE | 2019-10-08 08:46 | PCM.PROG ---
Progress Note - Progress Note for Day of Date of Exam: 10/06/19 - Subjective Subjective: PT IS 69 WF ER ADMISSION ON 10/04 WITH CO pmhx COPD, HTN, CVA, presenting from assisted living via EMS d/t shortness of breath. She states her symptoms have been gradually worsening over the past 4 weeks and acutely worsened over the past day. She failed outpatient treatment with steroids(Medrol dose pack) and antibiotics(Levaquin). She is on chronic supplemental O2(BL 2L) does use inhalers and a nebulizer at home that has not provided any relief. Reports associated sx of fever, chills, productive cough(green sputum). SINCE ADMISSION PT HAD BEEN ON IV ROCEPHIN AND ZITHROMAX WITH RESP THERAPY AND IV SOLU MEDROL. PT WBC 22.5, PT IS CURRENTLY ON IV CORTICOSTEROIDS WHICH WE DECREASED. THIS AM WITH SPUTUM SPECIMEN PENDING. PT CONTINUES WITH DIFFUSE EXPIRATORY WHEEZES AND CENTRAL RHONCHI AND CO LEFT PLEURITIC PAIN. CXR REVEALED : Left basilar atelectasis. and/or infiltrate. DISCUSSED CT CHEST FOR TOMORROW - Past Medical Family Social History Past Med/Fam/Surg Hx: No changes since H&P Allergies: Allergies hydroxyzine Allergy (Verified 10/04/19 11:12) Penicillins Allergy (Verified 10/04/19 10:48) vancomycin Allergy (Verified 10/04/19 10:48) - Review of Systems ROS: No change since H&P - Vital Signs and I&O's Vital Signs: Temperature 98.5 F Pulse Rate [Left Brachial] 74 Pulse Rate 74 Respiratory Rate 19 Blood Pressure [Left Arm] 169/71 Blood Pressure [Right Arm] 151/65 Blood Pressure 158/68 O2 Sat by Pulse Oximetry 96 Intake and Output: Intake & Output 10/05/19 10/06/19 10/07/19 10/08/19 11:59 11:59 11:59 11:59 Intake Total 1190 / 1190 2170 / 2170 3520 / 3520 3710 / 3710 Balance 1190 / 1190 2170 / 2170 3520 / 3520 3710 / 3710 - Physical Exam Oriented: Normal Eyes: Normal Ear: Normal Nose: Normal Respiratory: Diminished, Wheezes, Rhonchi Cardiovascular: Normal. negative: Edema : Normal Auscultation: Bowel Sounds: Normal Tenderness: Normal Skin: Normal Musculoskeletal: Normal Psychiatric: Normal Mood Description: Calm Affect: Anxious Speech Pattern: Clear, Appropriate - Laboratory and Diagnostics Result Diagrams: 10/08/19 04:48 10/08/19 04:48 Labs: 10/05/19 09:35 Blood Blood Culture - Preliminary 10/05/19 09:07 Blood Blood Culture - Preliminary 10/05/19 10:53 Urine,Clean Catch Urine Culture - Final 10/04/19 13:14 Sputum - Expectorated Sputum Sputum Culture - Final 10/04/19 13:14 Sputum - Expectorated Sputum - Final Laboratory WBC 12.8 X10^3/uL (3.6-10.0) H 10/08/19 04:48 RBC 3.82 X10^6/uL (3.5-5.4) 10/08/19 04:48 Hgb 8.6 g/dL (12.0-16.0) L 10/08/19 04:48 Hct 27.7 % (36.0-47.0) L 10/08/19 04:48 MCV 72.4 fL (80.0-100.0) L 10/08/19 04:48 MCH 22.5 pg (27.0-34.0) L 10/08/19 04:48 MCHC 31.0 g/dL (33.0-35.0) L 10/08/19 04:48 RDW 18.3 % (11.6-16.5) H 10/08/19 04:48 Plt Count 188 X10^3/uL (150.0-450.0) 10/08/19 04:48 Plt Count Comment Adequate (ADEQUATE) 10/08/19 04:48 MPV 9.7 fL (7.4-11.0) 10/08/19 04:48 Neut % (Auto) 81.0 % (42.0-75.0) H 10/08/19 04:48 Lymph % (Auto) 11.6 % (21.0-51.0) L 10/08/19 04:48 [place] % (Auto) 7.1 % (0.0-13.0) 10/08/19 04:48 Eos % (Auto) 0.1 % (0.9-2.9) L 10/08/19 04:48 Baso % (Auto) 0.2 % (0.2-1.0) 10/08/19 04:48 Neut # (Auto) 10.4 x10^3/uL (2.2-4.8) H 10/08/19 04:48 Lymph # (Auto) 1.5 X10^3/uL (1.3-2.9) 10/08/19 04:48 [place] # (Auto) 0.9 x10^3/uL (0.3-0.8) H 10/08/19 04:48 Eos # (Auto) 0.0 x10^3/uL (0.0-0.2) 10/08/19 04:48 Baso # (Auto) 0.0 X10^3/uL (0.0-0.1) 10/08/19 04:48 Absolute Nucleated RBC 0.0 /100WBC 10/08/19 04:48 Total Counted 100 10/07/19 05:10 Neutrophils % (Manual) 88 % (39-76) H 10/07/19 05:10 Band Neutrophils % 1 % (0-10) 10/07/19 05:10 Lymphocytes % (Manual) 6 % (13-43) L 10/07/19 05:10 Monocytes % (Manual) 5 % (4-9) 10/07/19 05:10 Plt Morphology Comment Normal (NORMAL) 10/08/19 04:48 RBC Morphology Abnormal (NORMAL) A 10/08/19 04:48 Hypochromasia 1+ A 10/08/19 04:48 Anisocytosis Slight A 10/08/19 04:48 Microcytosis Slight A 10/08/19 04:48 Sample Site Rb 10/05/19 09:22 ABG pH 7.450 (7.35-7.45) 10/05/19 09:22 ABG pCO2 38.0 mmHg (35.0-45.0) 10/05/19 09:22 ABG pO2 72.0 mmHg (80.0-100.0) L 10/05/19 09:22 ABG HCO3 26.4 mmol/L (22-26) H 10/05/19 09:22 ABG O2 Saturation 95.0 % (90-100) 10/05/19 09:22 ABG Base Excess 2.4 mmol/L (-2.0-2.0) H 10/05/19 09:22 Romain Test Na 10/05/19 09:22 A-a Gradient 30.0 mmHg 10/05/19 09:22 FiO2 21.0 10/05/19 09:22 Blood Gas Comments Pt krystal well. cdn 10/05/19 09:22 Sodium 143 mmol/L (136-145) 10/08/19 04:48 Corrected Sodium TNP 10/08/19 04:48 Potassium 3.6 mmol/L (3.5-5.1) 10/08/19 04:48 Chloride 107 mmol/L (98-107) 10/08/19 04:48 Carbon Dioxide 31.1 mmol/L (21-32) 10/08/19 04:48 BUN 11 mg/dL (7-18) 10/08/19 04:48 Creatinine 0.65 mg/dL (0.55-1.02) 10/08/19 04:48 Est GFR (MDRD) Af Amer > 60 (>60) 10/08/19 04:48 Est GFR (MDRD) Non-Af > 60 (>60) 10/08/19 04:48 Glucose 95 mg/dL (65-99) 10/08/19 04:48 Calcium 9.0 mg/dL (8.5-10.1) 10/08/19 04:48 Corrected Calcium 10.0 mg/dL (8.5-10.1) 10/08/19 04:48 Magnesium 1.7 mg/dL (1.7-2.9) 10/07/19 05:10 Total Bilirubin 0.20 mg/dL (0.2-1.0) 10/08/19 04:48 AST 10 Units/L (15-37) L 10/08/19 04:48 ALT 24 Units/L (12-78) 10/08/19 04:48 Alkaline Phosphatase 28 Units/L (46-116) L 10/08/19 04:48 Creatine Kinase 32 Units/L (26-192) 10/05/19 18:38 CK-MB (CK-2) 3.8 ng/mL (0-4.0) 10/05/19 18:38 CK/CKMB % Calc 11.9 % (<4) 10/05/19 18:38 Troponin I 0.03 ng/mL (0-1.5) 10/05/19 18:38 Total Protein 5.2 g/dL (6.4-8.2) L 10/08/19 04:48 Albumin 2.7 g/dL (3.4-5.0) L 10/08/19 04:48 Globulin 2.5 g/dL (2.5-4.5) 10/08/19 04:48 Albumin/Globulin Ratio 1.1 Ratio (1.1-2.1) 10/08/19 04:48 Specimen Type Clean catch urine 10/05/19 10:53 Urine Color Yellow (YELLOW) 10/05/19 10:53 Urine Appearance Clear (CLEAR) 10/05/19 10:53 Urine pH 6.0 (5.0 - 8.0) 10/05/19 10:53 Ur Specific [place] 1.015 (1.000-1.030) 10/05/19 10:53 Urine Protein Negative (NEGATIVE) 10/05/19 10:53 Urine Glucose (UA) Negative (NEGATIVE) 10/05/19 10:53 Urine Ketones Negative (NEGATIVE) 10/05/19 10:53 Urine Occult Blood Negative (NEGATIVE) 10/05/19 10:53 Urine Nitrite Negative (NEGATIVE) 10/05/19 10:53 Urine Bilirubin Negative (NEGATIVE) 10/05/19 10:53 Urine Urobilinogen Normal (NORMAL) 10/05/19 10:53 Ur Leukocyte Esterase Negative (NEGATIVE) 10/05/19 10:53 Influenza Type A (PCR) Negative (NEGATIVE) 10/04/19 12:42 Influenza Type B (PCR) Negative (NEGATIVE) 10/04/19 12:42 - Plan (1) COPD exacerbation Status: Acute Plan: Continue bronchodilators, Abx, IV steroids scheduled. F/u AM labs. Repeat am cxr (2) CVA, old, facial weakness Status: Acute (3) Hypertension, essential Status: Acute
--- NOTE | 2019-10-08 08:48 | PCM.PROG ---
Progress Note - Progress Note for Day of Date of Exam: 10/07/19 - Subjective Subjective: PT IS 69 WF ER ADMISSION ON 10/04 WITH CO pmhx COPD, HTN, CVA, presenting from assisted living via EMS d/t shortness of breath. She states her symptoms have been gradually worsening over the past 4 weeks and acutely worsened over the past day. She failed outpatient treatment with steroids(Medrol dose pack) and antibiotics(Levaquin). She is on chronic supplemental O2(BL 2L) does use inhalers and a nebulizer at home that has not provided any relief. Reports associated sx of fever, chills, productive cough(green sputum). SINCE ADMISSION PT HAD BEEN ON IV ROCEPHIN AND ZITHROMAX WITH RESP THERAPY AND IV SOLU MEDROL. PT WBC 20.4, PT IS CURRENTLY ON IV CORTICOSTEROIDS WHICH WE DECREASED. PT HAS BEEN AFEBRILE. PT CONTINUES WITH DIFFUSE EXPIRATORY WHEEZES AND CENTRAL RHONCHI AND CO LEFT PLEURITIC PAIN. CXR REVEALED : Left basilar atelectasis. PT IS NPO THIS AM FOR CT CHEST WITH CONTRAST. PT SPUTUM+YEAST, ADDED DIFLUCAN. PT REPORTS SHE IS FEELING MUCH BETTER THAN ADMISSION. PT CONTINUES WITH PULMONARY TOILETING. and/or infiltrate. DISCUSSED CT CHEST FOR TOMORROW - Past Medical Family Social History Past Med/Fam/Surg Hx: No changes since H&P Allergies: Allergies hydroxyzine Allergy (Verified 10/04/19 11:12) Penicillins Allergy (Verified 10/04/19 10:48) vancomycin Allergy (Verified 10/04/19 10:48) - Review of Systems ROS: No change since H&P - Vital Signs and I&O's Vital Signs: Temperature 98.5 F Pulse Rate [Left Brachial] 74 Pulse Rate 74 Respiratory Rate 19 Blood Pressure [Left Arm] 169/71 Blood Pressure [Right Arm] 151/65 Blood Pressure 158/68 O2 Sat by Pulse Oximetry 96 Intake and Output: Intake & Output 10/05/19 10/06/19 10/07/19 10/08/19 11:59 11:59 11:59 11:59 Intake Total 1190 / 1190 2170 / 2170 3520 / 3520 3710 / 3710 Balance 1190 / 1190 2170 / 2170 3520 / 3520 3710 / 3710 - Physical Exam Oriented: Normal Eyes: Normal Ear: Normal Nose: Normal Respiratory: Diminished, Wheezes, Rhonchi Cardiovascular: Normal. negative: Edema : Normal Auscultation: Bowel Sounds: Normal Tenderness: Normal Skin: Normal Musculoskeletal: Normal Psychiatric: Normal Mood Description: Calm Affect: Anxious Speech Pattern: Clear, Appropriate - Laboratory and Diagnostics Result Diagrams: 10/08/19 04:48 10/08/19 04:48 Labs: 10/05/19 09:35 Blood Blood Culture - Preliminary 10/05/19 09:07 Blood Blood Culture - Preliminary 10/05/19 10:53 Urine,Clean Catch Urine Culture - Final 10/04/19 13:14 Sputum - Expectorated Sputum Sputum Culture - Final 10/04/19 13:14 Sputum - Expectorated Sputum - Final Laboratory WBC 12.8 X10^3/uL (3.6-10.0) H 10/08/19 04:48 RBC 3.82 X10^6/uL (3.5-5.4) 10/08/19 04:48 Hgb 8.6 g/dL (12.0-16.0) L 10/08/19 04:48 Hct 27.7 % (36.0-47.0) L 10/08/19 04:48 MCV 72.4 fL (80.0-100.0) L 10/08/19 04:48 MCH 22.5 pg (27.0-34.0) L 10/08/19 04:48 MCHC 31.0 g/dL (33.0-35.0) L 10/08/19 04:48 RDW 18.3 % (11.6-16.5) H 10/08/19 04:48 Plt Count 188 X10^3/uL (150.0-450.0) 10/08/19 04:48 Plt Count Comment Adequate (ADEQUATE) 10/08/19 04:48 MPV 9.7 fL (7.4-11.0) 10/08/19 04:48 Neut % (Auto) 81.0 % (42.0-75.0) H 10/08/19 04:48 Lymph % (Auto) 11.6 % (21.0-51.0) L 10/08/19 04:48 [place] % (Auto) 7.1 % (0.0-13.0) 10/08/19 04:48 Eos % (Auto) 0.1 % (0.9-2.9) L 10/08/19 04:48 Baso % (Auto) 0.2 % (0.2-1.0) 10/08/19 04:48 Neut # (Auto) 10.4 x10^3/uL (2.2-4.8) H 10/08/19 04:48 Lymph # (Auto) 1.5 X10^3/uL (1.3-2.9) 10/08/19 04:48 [place] # (Auto) 0.9 x10^3/uL (0.3-0.8) H 10/08/19 04:48 Eos # (Auto) 0.0 x10^3/uL (0.0-0.2) 10/08/19 04:48 Baso # (Auto) 0.0 X10^3/uL (0.0-0.1) 10/08/19 04:48 Absolute Nucleated RBC 0.0 /100WBC 10/08/19 04:48 Total Counted 100 10/07/19 05:10 Neutrophils % (Manual) 88 % (39-76) H 10/07/19 05:10 Band Neutrophils % 1 % (0-10) 10/07/19 05:10 Lymphocytes % (Manual) 6 % (13-43) L 10/07/19 05:10 Monocytes % (Manual) 5 % (4-9) 10/07/19 05:10 Plt Morphology Comment Normal (NORMAL) 10/08/19 04:48 RBC Morphology Abnormal (NORMAL) A 10/08/19 04:48 Hypochromasia 1+ A 10/08/19 04:48 Anisocytosis Slight A 10/08/19 04:48 Microcytosis Slight A 10/08/19 04:48 Sample Site Rb 10/05/19 09:22 ABG pH 7.450 (7.35-7.45) 10/05/19 09:22 ABG pCO2 38.0 mmHg (35.0-45.0) 10/05/19 09:22 ABG pO2 72.0 mmHg (80.0-100.0) L 10/05/19 09:22 ABG HCO3 26.4 mmol/L (22-26) H 10/05/19 09:22 ABG O2 Saturation 95.0 % (90-100) 10/05/19 09:22 ABG Base Excess 2.4 mmol/L (-2.0-2.0) H 10/05/19 09:22 Romain Test Na 10/05/19 09:22 A-a Gradient 30.0 mmHg 10/05/19 09:22 FiO2 21.0 10/05/19 09:22 Blood Gas Comments Pt krystal well. cdn 10/05/19 09:22 Sodium 143 mmol/L (136-145) 10/08/19 04:48 Corrected Sodium TNP 10/08/19 04:48 Potassium 3.6 mmol/L (3.5-5.1) 10/08/19 04:48 Chloride 107 mmol/L (98-107) 10/08/19 04:48 Carbon Dioxide 31.1 mmol/L (21-32) 10/08/19 04:48 BUN 11 mg/dL (7-18) 10/08/19 04:48 Creatinine 0.65 mg/dL (0.55-1.02) 10/08/19 04:48 Est GFR (MDRD) Af Amer > 60 (>60) 10/08/19 04:48 Est GFR (MDRD) Non-Af > 60 (>60) 10/08/19 04:48 Glucose 95 mg/dL (65-99) 10/08/19 04:48 Calcium 9.0 mg/dL (8.5-10.1) 10/08/19 04:48 Corrected Calcium 10.0 mg/dL (8.5-10.1) 10/08/19 04:48 Magnesium 1.7 mg/dL (1.7-2.9) 10/07/19 05:10 Total Bilirubin 0.20 mg/dL (0.2-1.0) 10/08/19 04:48 AST 10 Units/L (15-37) L 10/08/19 04:48 ALT 24 Units/L (12-78) 10/08/19 04:48 Alkaline Phosphatase 28 Units/L (46-116) L 10/08/19 04:48 Creatine Kinase 32 Units/L (26-192) 10/05/19 18:38 CK-MB (CK-2) 3.8 ng/mL (0-4.0) 10/05/19 18:38 CK/CKMB % Calc 11.9 % (<4) 10/05/19 18:38 Troponin I 0.03 ng/mL (0-1.5) 10/05/19 18:38 Total Protein 5.2 g/dL (6.4-8.2) L 10/08/19 04:48 Albumin 2.7 g/dL (3.4-5.0) L 10/08/19 04:48 Globulin 2.5 g/dL (2.5-4.5) 10/08/19 04:48 Albumin/Globulin Ratio 1.1 Ratio (1.1-2.1) 10/08/19 04:48 Specimen Type Clean catch urine 10/05/19 10:53 Urine Color Yellow (YELLOW) 10/05/19 10:53 Urine Appearance Clear (CLEAR) 10/05/19 10:53 Urine pH 6.0 (5.0 - 8.0) 10/05/19 10:53 Ur Specific [place] 1.015 (1.000-1.030) 10/05/19 10:53 Urine Protein Negative (NEGATIVE) 10/05/19 10:53 Urine Glucose (UA) Negative (NEGATIVE) 10/05/19 10:53 Urine Ketones Negative (NEGATIVE) 10/05/19 10:53 Urine Occult Blood Negative (NEGATIVE) 10/05/19 10:53 Urine Nitrite Negative (NEGATIVE) 10/05/19 10:53 Urine Bilirubin Negative (NEGATIVE) 10/05/19 10:53 Urine Urobilinogen Normal (NORMAL) 10/05/19 10:53 Ur Leukocyte Esterase Negative (NEGATIVE) 10/05/19 10:53 Influenza Type A (PCR) Negative (NEGATIVE) 10/04/19 12:42 Influenza Type B (PCR) Negative (NEGATIVE) 10/04/19 12:42 - Plan (1) COPD exacerbation Status: Acute Plan: Continue bronchodilators, Abx, IV steroids scheduled. F/u AM labs. Repeat am cxr (2) CVA, old, facial weakness Status: Acute (3) Hypertension, essential Status: Acute
[2019-10-08] MEDS: PULMICORT NEB TX 0.5 MG NEB SCH (10:03)
[2019-10-08 12:32] VITALS: BP 137/59
[2019-10-08] MEDS: ZANTAC PO SCH (12:33)
== END 2019-10-08 15:05 | disposition home or self-care (01) | DRG 191 ==
LOC: MED/SURG 10:39 → ER 10:39 → OBSVTOIN 13:23 → MED/SURG 16:21
PROVIDERS: ADMIT Family Medicine; ATTEND Family Medicine
DX: E11.65 Type 2 diabetes mellitus with hyperglycemia; R94.31 Abnormal electrocardiogram [ECG] [EKG]; J98.11 Atelectasis; R53.1 Weakness; I25.10 Atherosclerotic heart disease of native coronary artery without angina pectoris; R06.02 Shortness of breath; Z99.81 Dependence on supplemental oxygen; J44.1 Chronic obstructive pulmonary disease with (acute) exacerbation; J20.8 Acute bronchitis due to other specified organisms; I10 Essential (primary) hypertension
CPT/HCPCS: 36415; 36600; 71020; 71046; 71260; 80053; 81003; 82550; 82553; 82803; 83735; 84484; 85025; 87040; 87070; 87086; 87205; 87502; 93005; 94640; 94669; 94760; 96365; 96367; 96374; 96375; 99284; A4222; J0456; J0696; J1450; J1885; J2270; J2405; J2930; J7030; J7050; J7060; J7620; J7626